=== PATIENT | female | born 1945 | race Caucasian/White ===

== ENCOUNTER 2016-09-03 18:56 | Emergency (ER) | payer MEDICARE, MEDICAID ==
[~2016-09-03] VITALS: Ht 167.6 cm; Wt 90.9 kg
[~2016-09-03 18:56] MED LIST: CARV25T PO; CEPH500C PO; FLUT1DIS7; INSU100V4; LEVO50TA83; LIDO30AD TP; LIP40; MIRT45TA; PRAZ5CAP; QUET400T; QUET50TA; TRAZ-151; VENL150C4; VENL75CA3; ZIPR40CA; [UNRECOGNIZED DRUG - CODE]; [UNRECOGNIZED DRUG - CODE]
[2016-09-03 19:09] VITALS: BP 180/114; PULSE 57; RESP 18; O2SAT 100
--- NOTE | 2016-09-03 19:10 | ED.REPORT ---
HPI-General Illness Date of Service Sep 03, 2016 ED Provider: William Newton MD Patient is a 70 year old female with a history of schizophrenia, bipolar disorder, prior CVA, hypertension, and diabetes mellitus who presents to the ED via EMS with decreased level of consciousness after she was found to have a blood sugar of 22 prior to arrival. AMP of D50 increased the blood sugar to the 200s. However, the patient's blood sugar is decreasing on arrival to the ED, down to 131. The patient lives with her sister and she is given her insulin by her sister. The patient knows that she was given her insulin today but she does not know if she was given too much. Patient states to ask her sister for more information, but she is not present in the ED on initial evaluation. The patient states that she feels improved on arrival to the ED and that she is hungry. She denies chest pain, shortness of breath, abdominal pain, light headedness, dizziness, vomiting, or diaphoresis. The patient's sister was later present in the ED and was able to provide additional history. Her sister is her caregiver and power of regulatory attorney. She reports that the patient received the normal amount of insulin and that she usually eats more food than she should. Her sister measured 275 blood glucose and was given 30 units of Lispro. This is what she was instructed to given her when she is hyperglycemic and has been their regime for the past year. She denies giving her sister too much insulin. Her sister later noted that the patient went up to the bathroom and that she appear wobbly. She found her sister laying still after dinner, with a blood sugar of 174. The patient later appeared more sedated and she called 911. Her sister also reports that the patient has had diarrhea for the past week. The diarrhea has been watery and very frequent (4-5 daily). The patient has not had hematochezia, abdominal pain , or vomiting. Patient is otherwise at her baseline. Her sister was recently admitted to the hospital for a C. diff. colitis infection. Nursing Notes Stated Complaint: HYPOGLYCEMIA Chief Complaint: General Complaint Nursing Notes Reviewed: Yes Allergies: Coded Allergies: Penicillins (Verified Allergy, Severe, FACIAL SWELLING, 09/03/16) aspirin (Verified Allergy, Severe, UNABLE TO BREATHE, 09/03/16) codeine (Verified Allergy, Severe, 09/03/16) fentanyl (Verified Allergy, Severe, 09/03/16) iodine (Verified Allergy, Severe, UNABLE TO BREATHE, 09/03/16) meperidine (Verified Allergy, Severe, 09/03/16) Uncoded Allergies: Demerol ASA iodine, and IVP dye. (Allergy, Unknown, 06/18/04) MEPERIDINE; FENTANYL (Ingr Allergy) (Allergy, Unknown, Y, 06/18/04) Opiate Agonists (Narcotics) (Allergy, Unknown, 06/18/04) SALICYLATES; NSAIDS; PYRAZOLES (Ingr Allergy) (Allergy, Unknown, Y, ) Scheduled Carvedilol-Expunged Drug, Do Not Renew! (Carvedilol-Expunged Drug, Do Not Renew! ) 25 Mg Tablet 12.5 MG PO BIDWM Cephalexin-Expunged Drug, Do Not Renew! (Cephalexin-Expunged Drug, Do Not Renew! ) 500 Mg Capsule 500 MG PO TID Lidocaine-Expunged Drug, Do Not Renew! (Lidoderm 5% Trans-Expunged Drug, Do Not Renew) 1 Patch Adh..patch 3 PATCH TP DAILY Miscellaneous Medications Albuterol-Expunged Drug, Do Not Renew! (Albuterol-Expunged Drug, Do Not Renew!) 2 Puffs Inh Atorvastatin-Expunged Drug, Do Not Renew! (Atorvastatin-Expunged Drug, Do Not Renew!) 40 Mg Tablet Flutic/Salmet-Expunged Drug, Do Not Renew! (Advair 250/50-Expunged Drug, Do Not Renew!) 1 Disk W/Dev Disk.w.dev Insulin Detemir-Expunged Drug, Do Not Renew! (Levemir-Expunged Drug, Do Not Renew!) 100 U/Ml Vial Levothyroxine-Expunged Drug, Do Not Renew! (Synthroid-Expunged Drug, Do Not Renew!) 50 Mcg Tablet Mirtazapine-Expunged Drug, Do Not Renew! (Remeron-Expunged Drug, Do Not Renew!) 45 Mg Tablet OXcarbazepine-Expunged Drug, Do Not Renew! (Trileptal-Expunged Drug, Do Not Renew!) 300 Mg Tablet Prazosin Hcl-Expunged Drug, Do Not Renew! (Minipress-Expunged Drug, Do Not Renew !) 5 Mg Capsule Quetiapine-Expunged Drug, Do Not Renew! (Seroquel-Expunged Drug, Do Not Renew!) 400 Mg Tablet Quetiapine-Expunged Drug, Do Not Renew! (Seroquel-Expunged Drug, Do Not Renew!) 50 Mg Tablet Trazodone-Expunged Drug, Do Not Renew! (Trazodone-Expunged Drug, Do Not Renew!) 50 Mg Tablet Venlafaxine-Expunged Drug, Do Not Renew! (Effexor XR-Expunged Drug, Do Not Renew !) 150 Mg Cap.er.24h Venlafaxine-Expunged Drug, Do Not Renew! (Effexor XR-Expunged Drug, Do Not Renew !) 75 Mg Cap.sr.24h Ziprasidone-Expunged Drug, Do Not Renew! (Geodon-Expunged Drug, Do Not Renew!) 40 Mg Capsule General Time Seen by MD: 19:09 Chief Complaint Other (low blood sugar) Hx Obtained From: Patient Arrived By: Ambulance Sudden in Onset?: No Onset Occurred: 1 - 4 hours ago Severity: Current: No pain currently Severity: Maximum: No pain Recent Healthcare: No recent doctor visit, No recent hospitalization Similar Sx Previous: No Past Medical History Past Medical History Bipolar disorder schizophrenia Left sided weakness secondary to prior CVA Reports: Diabetes mellitus, Hypertension Smoking History Never Smoker Social History Alcohol Use: Denies alcohol use Drug Use: Denies drug use Ambulatory Status Cane Review of Systems Full Review of Systems Respiratory: Denies: Non-productive cough, Shortness of breath Cardiovascular: Denies: Chest pain, Palpitations GI: Reports: Diarrhea, Denies: Abdominal pain, Hematochezia, Nausea, Vomiting Skin: Denies Diaphoresis Neurologic: Reports: Change LOC, Denies: Dizziness, Lightheaded Complete sys rev & neg: except as marked. Physical Exam Vital Signs Vital Signs Date Time Temp Pulse Resp B/P Pulse Ox O2 Delivery O2 Flow Rate FiO2 09/03/16 21:44 64 18 177/98 99 Room Air 09/03/16 19:58 53 20 157/100 98 Room Air 09/03/16 19:09 36.1 57 18 180/114 100 Room Air Initial VS: Reviewed Skin: Warm, Dry, No cyanosis Neurologic: Alert, Oriented, Nonfocal Psychiatric: Mood/affect normal, Behavior normal, Normal thought content General/Constitutional: Awake, Alert, No acute distress Appearance / Presentation: Positive: Obese Head / Eyes: Atraumatic, Normocephalic, PERRL ENT: Airway patent Neck: Supple, Full range of motion Respiratory / Chest: Breath sounds NL, Breath sounds = bilat, No respiratory distress, No rales, No rhonchi, No wheezing Cardiovascular: Heart rate NL, Regular rhythm, No murmurs Abdomen: Soft, Non-tender, No guarding, No rebound Upper Extremities Upper Extremity / MS: No swelling, No edema Lower Extremity / Pelvis / MS: No swelling, No edema left leg brace Interpretation & Diagnostics Lab Results Interpretation Result Diagram: 09/03/16194409/03/161944 Test 09/03/16 19:35 09/03/16 19:45 Urine Color Yellow (YELLOW) Urine Appearance Clear (CLEAR,HAZY) Urine pH 7.5 (5.0-8.0) Urine Specific [place] 1.020 (1.003-1.035) Urine Protein Tracemg/dL (NEG,TRACE) Urine Glucose (UA) 100mg/dL (NEGATIVE) Urine Ketones Negativemg/dL (NEGATIVE) Urine Occult Blood Negative (NEGATIVE) Urine Nitrite Negative (NEGATIVE) Urine Bilirubin Negative (NEGATIVE) Urine Urobilinogen Normalmg/dL (NORMAL) Urine Leukocyte Esterase Negative (NEGATIVE) Urine RBC 0-2/hpf (0-2) Urine WBC 0-5/hpf (0-5) Urine Epithelial Cells Few/hpf (NONE-MOD) Urine Crystals None seen (NONE SEEN) Urine Bacteria Few/hpf (NONE-FEW) Urine Hyaline Casts None/lpf (NONE) Urine Granular Casts None seen (NONE SEEN) Urine Waxy Casts None seen (NONE SEEN) Urine Red Blood Cell Casts None seen (NONE SEEN) Urine White Blood Cell Casts None seen (NONE SEEN) Urine Mucus None seen (None Seen) Urine Trichomonas None seen (NONE SEEN) Urine Yeast None (NONE SEEN) Urinalysis Comment None Urine Culture Reflexed Not indicated Hold Urine Received (Received) White Blood Count 12.5th/mm3 (3.8-10.1) Red Blood Count 5.27mil/mm3 (3.90-5.20) Hemoglobin 14.9g/dL (12.0-15.6) Hematocrit 42.3% (35.0-46.0) Mean Corpuscular Volume 80.3fL (81-100) Mean Corpuscular Hemoglobin 28.3pg (27.0-35.0) Mean Corpuscular Hemoglobin Concent 35.2% (32.0-37.0) Red Cell Distribution Width 13.8% (12.3-15.4) Platelet Count 178bil/L (150-400) Neutrophils (%) (Auto) 75.5% (40-74) Lymphocytes (%) (Auto) 13.5% (14-46) Monocytes (%) (Auto) 4.9% (4-12) Eosinophils (%) (Auto) 5.3% (0-5) Basophils (%) (Auto) 0.2% (0-3) Sodium Level 130mEq/L (134-144) Potassium Level 4.2mEq/L (3.5-5.2) Chloride Level 91mEq/L (97-108) Carbon Dioxide Level 22mmol/L (18-29) Blood Urea Nitrogen 8mg/dL (8-27) Creatinine 0.47mg/dL (0.57-1.00) Estimat Glomerular Filtration Rate 189mL/min (>59) Glucose Level 69mg/dL (60-99) Calcium Level 9.4mg/dL (8.5-10.1) Magnesium Level 1.9mg/dL (1.6-2.6) Total Bilirubin 0.3mg/dL (0.0-1.2) Aspartate Amino Transf (AST/SGOT) 33U/L (0-50) Alanine Aminotransferase (ALT/SGPT) 27U/L (0-32) Alkaline Phosphatase 80U/L (25-165) Total Protein 7.7g/dL (6.4-8.4) Albumin 4.0g/dL (3.4-5.0) Lipase 24U/L (13-60) ECG Interpretation ECG Interpretation: Normal Sinus Rhythm, Rate 56 Time: 20:00 Interpreted by: ED physician Normal ECG Interpretation: No acute ischemic changes X-Ray Chest Interpretation Chest Xray Interpretation: IMPRESSION: Normal examination. Dictated by: Sascha Trejo M.D. on 09/03/2016 at 20:15 Approved by: Sascha Trejo M.D. on 09/03/2016 at 20:15 Interpretation / Wet Read by: Interpret - Radiologist Re-Eval/Medical Decision Med Decision/Clinical Course 70-year-old female history diabetes, schizophrenia presenting with hypoglycemia blood sugar of 22. Patient was obtunded today at home in the care of her sister and called paramedics and they showed up and her blood sugar showed 22. There are home monitor at the same time showed 170s. They had inadvertently corrected prior to dinner and blood sugar of the 200s with 30 units of short-acting insulin. After comparing to paramedics Accu-Chek their home Accu-Chek was inaccurate. Therefore she had been given too much insulin. She was given 1 amp of D50 en route. Her blood sugars trended down. She was given another amp of D50 here. She was given food and her blood sugars then remained stable. She was observed for 4-1/2 hours. With stable blood sugars. Discussed with family and they would like to take her home. They will check her blood sugar in 2 hours. If her blood sugars drop again and they are unable to corrected with oral they will call the paramedics. They are advised to follow-up with her primary doctor tomorrow and get a new glucometer. Source of Hx: Old records Time of Eval: 20:00 Patient Status: Condition improved Re-Evaluation/Progress Note: Rechecked the patient, who is now joined by her sister. She is able to provide more history. Time of Eval: 23:04 Patient Status: Condition improved Re-Evaluation/Progress Note: Patient remains stable in the ED after eating food. Sister states that they believe their glucose moniter is no longer properly calibrated and this is what caused the error tonight. Patient's sister understands and agrees with the plan to be discharged home. Discharge instructions and follow-up discussed. All questions were addressed. Return to the ED warnings given. Counseled Regarding: Diagnosis, Lab results, Need for follow-up, When/why to return to ED Discharge & Departure Primary Impression: Hypoglycemia Additional Impression: Diabetes mellitus Diabetes mellitus type: type 2 Diabetes mellitus complication status: with unspecified complications Qualified Code: E11.8 - Type 2 diabetes mellitus with unspecified complications Disposition: Home Discharge Condition All VS Reviewed: Yes Condition: Stable Patient Instructions: Diabetic Hypoglycemia (ED) Additional Instructions: Her blood sugars has been consistently in the 100s during her emergency department visit fabricio. Her laboratory evaluation was otherwise reassuring. Recheck her blood sugar in 2 hours. If her blood sugar is below 60, give her something to eat and then recheck her blood sugar again. Follow-up with her doctor in the next 1-2 days. You should look into obtaining a new blood glucose monitor. Return to the emergency department if she develops decreased level of consciousness, confusion, fever, vomiting, or any other concerning symptoms. Referrals: Shimon Neville MD (PCP) Scribe Attestation Portions of this note were transcribed by Luna Olivia. I, Dr. Newton personally performed the history, physical exam and medical decision-making; I reviewed and confirmed the accuracy of the information in the transcribed note. Signed by: Brain Woody, 09/03/2016 [id number] copies to: Shimon Neville MD, Ben M MD Sep 03, 2016 19:09 Luna Olivia Sep 03, 2016 19:18
[2016-09-03 19:52] LABS: BASOPHILS % (AUTO) 0.2 % (0-3); EOSINOPHILS % (AUTO) 5.3 % (0-5); MONOCYTES % (AUTO) 4.9 % (4-12); Mean Corpuscular Hemoglobin 28.3 pg (27.0-35.0); Mean Corpuscular Volume 80.3 fL (81-100); NEUTROPHILS % (AUTO) 75.5 % (40-74); Platelet Count 178 bil/L (150-400)
[2016-09-03 19:58] VITALS: BP 157/100; PULSE 53; RESP 20; O2SAT 98
[2016-09-03 20:09] LABS: APPEARANCE,URINE CLEAR (CLEAR,HAZY); COLOR,URINE YELLOW (YELLOW); OCCULT BLOOD,URINE NEGATIVE (NEGATIVE); PH,URINE 7.5 (5.0-8.0); UROBILINOGEN,URINE NORMAL (NORMAL)
[2016-09-03 20:16] LABS: Magnesium 1.9 mg/dL (1.6-2.6)
--- NOTE | 2016-09-03 20:17 | DRSVH ---
PROCEDURE: X-RAY CHEST ONE VIEW, PORTABLE ([id number]) INDICATIONS: dyspnea TECHNIQUE: One view of the chest was acquired. COMPARISON: [facility], , CHEST 1VW (PORTABLE), 03/26/2008, 20:54. FINDINGS: Surgical changes and devices: None. Lungs and pleura: No pleural effusions or pneumothorax. Lungs are clear. Mediastinum: Mediastinal contours appear normal. Heart size is normal. Bones and chest wall: No suspicious bony lesions. Overlying soft tissues appear unremarkable. IMPRESSION: Normal examination. Dictated by: Sascha Trejo M.D. on 09/03/2016 at 20:15 Approved by: Sascha Trejo M.D. on 09/03/2016 at 20:15
[2016-09-03 21:44] VITALS: BP 177/98; PULSE 64; RESP 18; O2SAT 99
[2016-09-03 23:25] VITALS: BP 179/89; PULSE 70; RESP 18; O2SAT 96
== END 2016-09-03 23:26 | disposition home or self-care (01) ==
LOC: SED 18:56 → EDBD 18:56 → EDUNIT# 18:56 → SED 23:26
DX: E11.649 Type 2 diabetes mellitus with hypoglycemia without coma (principal); R19.7 Diarrhea, unspecified; I10 Essential (primary) hypertension; I69.998 Other sequelae following unspecified cerebrovascular disease; R53.1 Weakness; F31.9 Bipolar disorder, unspecified; F20.9 Schizophrenia, unspecified; Z88.0 Allergy status to penicillin; Z88.5 Allergy status to narcotic agent; Z88.8 Allergy status to other drugs, medicaments and biological substances; Z79.4 Long term (current) use of insulin

== ENCOUNTER 2016-09-20 13:45 | Emergency (ER) | payer MEDICARE, MEDICAID ==
[~2016-09-20] VITALS: Ht 154.9 cm; Wt 126.4 kg
[2016-09-20 14:06] VITALS: BP 174/94; PULSE 76; RESP 20; O2SAT 95
--- NOTE | 2016-09-20 15:01 | ED.REPORT ---
HPI-Trauma Minor / Fall Date of Service Sep 20, 2016 ED Provider: Saroj Ortez MD Pt is a 70 y/o female w/ a hx of strokes x4 with residual left sided deficits, early onset dementia, HTN, IDDM, presenting to the ED via EMS due to GLF which occurred about 1.5 hours ago. She does not remember falling or the mechanism of the fall. Her sister found her lying on cement ground on her right side with an obvious head injury. She c/o associated FLETCHER , dizziness, blurred vision, slurred speech, worsening confusion, nausea, numbness and weakness of the left side ( chronic, residual). She denies vomiting, neck pain, CP, SOB, fever, chills. Additionally, caregiver reports a refractory rash on the abdomen for some months not responsive to nystatin. Nursing Notes Stated Complaint: GROUND LEVEL FALL Chief Complaint: Multiple Trauma/Fall Nursing Notes Reviewed: Yes Allergies: Coded Allergies: Penicillins (Verified Allergy, Severe, FACIAL SWELLING, 09/03/16) aspirin (Verified Allergy, Severe, UNABLE TO BREATHE, 09/03/16) codeine (Verified Allergy, Severe, 09/03/16) fentanyl (Verified Allergy, Severe, 09/03/16) iodine (Verified Allergy, Severe, UNABLE TO BREATHE, 09/03/16) meperidine (Verified Allergy, Severe, 09/03/16) Uncoded Allergies: Demerol ASA iodine, and IVP dye. (Allergy, Unknown, 06/18/04) MEPERIDINE; FENTANYL (Ingr Allergy) (Allergy, Unknown, Y, 06/18/04) Opiate Agonists (Narcotics) (Allergy, Unknown, 06/18/04) SALICYLATES; NSAIDS; PYRAZOLES (Ingr Allergy) (Allergy, Unknown, Y, ) Scheduled Carvedilol-Expunged Drug, Do Not Renew! (Carvedilol-Expunged Drug, Do Not Renew! ) 25 Mg Tablet 12.5 MG PO BIDWM Cephalexin-Expunged Drug, Do Not Renew! (Cephalexin-Expunged Drug, Do Not Renew! ) 500 Mg Capsule 500 MG PO TID Lidocaine-Expunged Drug, Do Not Renew! (Lidoderm 5% Trans-Expunged Drug, Do Not Renew) 1 Patch Adh..patch 3 PATCH TP DAILY Miscellaneous Medications Albuterol-Expunged Drug, Do Not Renew! (Albuterol-Expunged Drug, Do Not Renew!) 2 Puffs Inh Atorvastatin-Expunged Drug, Do Not Renew! (Atorvastatin-Expunged Drug, Do Not Renew!) 40 Mg Tablet Flutic/Salmet-Expunged Drug, Do Not Renew! (Advair 250/50-Expunged Drug, Do Not Renew!) 1 Disk W/Dev Disk.w.dev Insulin Detemir-Expunged Drug, Do Not Renew! (Levemir-Expunged Drug, Do Not Renew!) 100 U/Ml Vial Levothyroxine-Expunged Drug, Do Not Renew! (Synthroid-Expunged Drug, Do Not Renew!) 50 Mcg Tablet Mirtazapine-Expunged Drug, Do Not Renew! (Remeron-Expunged Drug, Do Not Renew!) 45 Mg Tablet OXcarbazepine-Expunged Drug, Do Not Renew! (Trileptal-Expunged Drug, Do Not Renew!) 300 Mg Tablet Prazosin Hcl-Expunged Drug, Do Not Renew! (Minipress-Expunged Drug, Do Not Renew !) 5 Mg Capsule Quetiapine-Expunged Drug, Do Not Renew! (Seroquel-Expunged Drug, Do Not Renew!) 400 Mg Tablet Quetiapine-Expunged Drug, Do Not Renew! (Seroquel-Expunged Drug, Do Not Renew!) 50 Mg Tablet Trazodone-Expunged Drug, Do Not Renew! (Trazodone-Expunged Drug, Do Not Renew!) 50 Mg Tablet Venlafaxine-Expunged Drug, Do Not Renew! (Effexor XR-Expunged Drug, Do Not Renew !) 150 Mg Cap.er.24h Venlafaxine-Expunged Drug, Do Not Renew! (Effexor XR-Expunged Drug, Do Not Renew !) 75 Mg Cap.sr.24h Ziprasidone-Expunged Drug, Do Not Renew! (Geodon-Expunged Drug, Do Not Renew!) 40 Mg Capsule General Time Seen by MD: 14:59 Chief Complaint Fall, Head injury Hx Obtained From: Patient, EMS Arrived By: Ambulance Onset Occurred: 1 - 4 hours ago Caused by: Accidental, Fall on ground Location: Head Quality: Aching Severity: Current: Mild Severity: Maximum: Moderate Past Medical History Past Medical History Bipolar disorder schizophrenia Left sided weakness secondary to prior CVA Strokes x4 Early onset dementia Suicidal ideation Hypertension Insulin dependent diabetes COPD Asthma Hx pneumonia Anxiety Depression Recurrent suicidal ideation Hx self harm Past Surgical History R hand Back Tubal ligation Smoking History Never Smoker Social History Alcohol Use: Denies alcohol use Drug Use: Denies drug use Ambulatory Status Cane Review of Systems Constitutional: Denies: Chills, Fever Respiratory: Denies: Shortness of breath Musculoskeletal: Denies: Neck pain Neurologic: Reports: Confusion, Dizziness, Focal weakness, Headache, Numbness, Slurred speech, Vision change Complete sys rev & neg: except as marked. Cardiovascular: Denies: Chest pain GI: Reports: Nausea, Denies: Vomiting Physical Exam Initial Vital Signs Vital Signs (First) Date Time Temp Pulse Resp B/P Pulse Ox O2 Delivery O2 Flow Rate FiO2 09/20/16 14:06 37.1 76 20 95 Room Air 09/20/16 14:06 174/94 Initial VS: Reviewed, Vital signs abnormal Respiratory: Breath sounds normal, Clear to auscultation, No respiratory distress Cardiovascular: Regular rate & rhythm, Heart sounds normal, Intact distal pulses Abdomen / GI: Soft, Non-tender, No guarding, No rebound, No distention Skin: Warm, Dry, No cyanosis Psychiatric: Mood/affect normal, Behavior normal, Normal thought content General/Constitutional: Awake, Alert, No acute distress, Cooperative, Not toxic appearing Neck: Atraumatic, Supple, No meningismus, Full range of motion Mild posterior c-spine tenderness Head / Eyes: Normocephalic, PERRL, EOMI Tender subgalia hematoma right occiput Lower Extremity / Pelvis / MS: Full range of motion, No deformity, Vascular intact, Pelvis stable, Pelvis non-tender Brace on the left left FROM of hips Color / Condition: Positive: Rash present Rash / Lesion Notes: Fungal appearing rash in the fold under the abdominal pannus. No significant skin breakdown. Neurologic: Oriented X3, Speech NL No sensation of the left side - residual Interpretation & Diagnostics Lab Results Interpretation Test 09/20/16 14:36 09/20/16 17:07 Hold Purple Top Tube Received (Received) Hold Blue Top Tube Received (Received) Hold [place] Top Tube Received (Received) Hold [place] Top Tube Received (Received) Urine Color Yellow (YELLOW) Urine Appearance Clear (CLEAR,HAZY) Urine pH 6.0 (5.0-8.0) Urine Specific [place] 1.025 (1.003-1.035) Urine Protein Negativemg/dL (NEG,TRACE) Urine Glucose (UA) Negativemg/dL (NEGATIVE) Urine Ketones Negativemg/dL (NEGATIVE) Urine Occult Blood Negative (NEGATIVE) Urine Nitrite Negative (NEGATIVE) Urine Bilirubin Negative (NEGATIVE) Urine Urobilinogen Normalmg/dL (NORMAL) Urine Leukocyte Esterase Negative (NEGATIVE) Urine RBC 0-2/hpf (0-2) Urine WBC 0-5/hpf (0-5) Urine Epithelial Cells None/hpf (NONE-MOD) Urine Crystals None seen (NONE SEEN) Urine Bacteria None/hpf (NONE-FEW) Urine Hyaline Casts None/lpf (NONE) Urine Granular Casts None seen (NONE SEEN) Urine Waxy Casts None seen (NONE SEEN) Urine Red Blood Cell Casts None seen (NONE SEEN) Urine White Blood Cell Casts None seen (NONE SEEN) Urine Mucus None seen (None Seen) Urine Trichomonas None seen (NONE SEEN) Urine Yeast None (NONE SEEN) Urinalysis Comment None Urine Culture Reflexed Not indicated CT Head Interpretation IMPRESSION: No acute intracranial disease process. Dictated by: Ericka Grover MD, PhD on 09/20/2016 at 16:24 Approved by: Ericka Grover MD, PhD on 09/20/2016 at 16:26 Study: Head CT no contrast Interpretation / Wet Read by: Interpret - Radiologist CT C-Spine Interpretation IMPRESSION: No fracture. No acute osseous lesion. If symptoms and/or clinical suspicion for pathology persists, evaluation with MRI may be helpful for further assessment. Dictated by: Ericka Grover MD, PhD on 09/20/2016 at 16:26 Approved by: Ericka Grover MD, PhD on 09/20/2016 at 16:31 Study type: CT no contrast Interpretation / Wet Read by: Interpret - Radiologist Re-Eval/Medical Decision Source of Hx: Old records, EMS, Family Re-Evaluation/Progress : Time of Eval: 17:41 Patient Status: Condition improved Re-Evaluation/Progress Note: Pt rechecked. Discussed negative imaging and lab results. Informed pt of plan for treatment. Pt understands and agrees with plan for treatment. F/U instructions and RTER warnings given. All questions addressed. Counseled Regarding: Diagnosis, Lab results, Need for follow-up, When/why to return to ED Discharge & Departure Impression: Primary Impression: Fall from ground level Additional Impressions: Minor head injury Encounter type: initial encounter Qualified Code: S00.90XA - Unspecified superficial injury of unspecified part of head, initial encounter Fungal infection of skin Disposition: Home Discharge Condition All VS Reviewed: Yes Condition: Stable Patient Instructions: Minor Head Injury (ED) Additional Instructions: The CT scan of your head and neck today were normal. Your urinalysis today was also normal. No dangerous injuries have been identified. I recommend you follow-up with your primary care doctor later this week or early next week if your symptoms persist to any degree. Regarding the fungal infection on the skin, I recommend daily washing with clean tap water and a mild soap. Make sure the skin is completely dry and then apply Lamisil cream sparingly on all the affected tissue. Put a piece of clean dry cotton cloth in the fold to keep the area dry. The cotton cloth might need to be changed a few times a day. The antifungal cream only needs to be applied once a day. If you do not see any improvement in about 2 weeks, follow-up with your doctor for this. Return to the emergency department if you continue to fall, develop a fever, or for other new or worsening symptoms. Referrals: Shimon Neville MD (PCP) Brain Attestation Portions of this note were transcribed by Mac Elise. I, Dr. Ortez personally performed the history, physical exam and medical decision-making; I reviewed and confirmed the accuracy of the information in the transcribed note. Signed by Brain Alvarez, 09/20/16 - 1630 copies to: Shimon Neville MD, Kirk H MD Sep 20, 2016 15:01 MAC ELISE Sep 20, 2016 15:33
--- NOTE | 2016-09-20 16:28 | DRSVH ---
PROCEDURE: CT BRAIN WITHOUT CONTRAST ([id number]) INDICATIONS: trauma TECHNIQUE: Noncontrast 4.5 mm thick angled axial sections acquired from the foramen magnum to the vertex, with c oronal reformats. COMPARISON: [facility], [place], BRAIN W/O CONTRAST, 07/30/2014, 15:34. FINDINGS: Image quality: Excellent. CSF spaces: Basal cisterns are patent. No extra-axial fluid collections. The ventricles are symmet harrpeet in size and shape. Brain: No intracranial bleeds or masses. There is cerebral volume loss for age, with resultant vent ricular and sulcal prominence. There are periventricular and deep white matter chronic small vessel ischemic changes. There is intracranial internal carotid artery atherosclerosis. Skull and face: Calvarium and visualized facial bones appear intact, without suspicious lesions. Sinuses: Visualized sinuses and mastoids are clear. IMPRESSION: No acute intracranial disease process. Dictated by: Ericka Grover MD, PhD on 09/20/2016 at 16:24 Approved by: Ericka Grover MD, PhD on 09/20/2016 at 16:26
--- NOTE | 2016-09-20 16:33 | DRSVH ---
PROCEDURE: CT CERVICAL SPINE WITHOUT CONTRAST ([id number]) INDICATIONS: trauma TECHNIQUE: Noncontrast 3 mm thick sections acquired from the skull base to the T4 level. Sagittal and coronal r eformats were then constructed. For radiation dose reduction, the following was used: automated exp osure control, adjustment of mA and/or kV according to patient size. COMPARISON: None. FINDINGS: Image quality: Excellent. Bones: No fractures or dislocations. Visualized superior ribs are intact. Multilevel degenerative d isc disease and facet arthropathy are noted. Soft tissues: Prevertebral soft tissues are normal in thickness. No paravertebral hematomas. No ap ical pneumothoraces. IMPRESSION: No fracture. No acute osseous lesion. If symptoms and/or clinical suspicion for patholog y persists, evaluation with MRI may be helpful for further assessment. Dictated by: Ericka Grover MD, PhD on 09/20/2016 at 16:26 Approved by: Ericka Grover MD, PhD on 09/20/2016 at 16:31
[2016-09-20 17:32] LABS: APPEARANCE,URINE CLEAR (CLEAR,HAZY); COLOR,URINE YELLOW (YELLOW)
[2016-09-20 17:33] LABS: OCCULT BLOOD,URINE NEGATIVE (NEGATIVE); UROBILINOGEN,URINE NORMAL (NORMAL)
[2016-09-20 18:10] VITALS: BP 157/101; PULSE 81; RESP 18; O2SAT 97
== END 2016-09-20 18:12 | disposition home or self-care (01) ==
LOC: SED 13:45 → EDBD 13:45 → EDUNIT# 13:45 → SED 18:12
DX: S09.90XA Unspecified injury of head, initial encounter (principal); B36.9 Superficial mycosis, unspecified; W18.30XA Fall on same level, unspecified, initial encounter; Y93.01 Activity, walking, marching and hiking; Y99.8 Other external cause status; Y92.014 Private driveway to single-family (private) house as the place of occurrence of the external cause; I10 Essential (primary) hypertension; E11.9 Type 2 diabetes mellitus without complications; J45.909 Unspecified asthma, uncomplicated; J44.9 Chronic obstructive pulmonary disease, unspecified; Z86.73 Personal history of transient ischemic attack (TIA), and cerebral infarction without residual deficits; Z79.4 Long term (current) use of insulin; Z79.51 Long term (current) use of inhaled steroids; Z88.0 Allergy status to penicillin; Z88.6 Allergy status to analgesic agent; Z88.5 Allergy status to narcotic agent

== ENCOUNTER 2016-12-24 19:02 | Inpatient (IN) | payer MEDICARE, MEDICAID ==
[~2016-12-24] VITALS: Ht 154.9 cm; Wt 99.5 kg
--- NOTE | 2016-12-24 19:07 | ED.REPORT ---
HPI-Altered Mental Status Date of Service December 24, 2016 ED Provider: Arya Howard MD The pt is a 71 y/o female w/ a hx of hypoglycemia, dementia, schizophrenia and strokes presenting to the ED via EMS due to unresponsiveness. Per EMS, the pt had just finished a dinner of 4 corn dogs and a Mountain Dew this evening and became unresponsive shortly after. Her family checked her blood sugar and found it to be 19, though EMS measured a blood sugar of 197 when they arrived thirty minutes later. The pt became more responsive after paramedics arrived, but remains below baseline per family. The pt's sister reports that the pt took her regular medications after dinner including Trazodone and Seroquel, and had been acting normally earlier in the day. The pt is not on any pain medications. The pt had labs done yesterday which indicated abnormal sodium levels. Nursing Notes Stated Complaint: UNRESPONSIVE Nursing Notes Reviewed: Yes Allergies: Coded Allergies: Penicillins (Verified Allergy, Severe, FACIAL SWELLING, 09/03/16) aspirin (Verified Allergy, Severe, UNABLE TO BREATHE, 09/03/16) codeine (Verified Allergy, Severe, 09/03/16) fentanyl (Verified Allergy, Severe, 09/03/16) iodine (Verified Allergy, Severe, UNABLE TO BREATHE, 09/03/16) meperidine (Verified Allergy, Severe, 09/03/16) Uncoded Allergies: Demerol ASA iodine, and IVP dye. (Allergy, Unknown, 06/18/04) MEPERIDINE; FENTANYL (Ingr Allergy) (Allergy, Unknown, Y, 06/18/04) Opiate Agonists (Narcotics) (Allergy, Unknown, 06/18/04) SALICYLATES; NSAIDS; PYRAZOLES (Ingr Allergy) (Allergy, Unknown, Y, ) Scheduled Atorvastatin (Lipitor) 40 Mg Tablet 40 MG PO HS Carvedilol (Carvedilol) 25 Mg Tablet 25 MG PO BID Fluticasone/Salmeterol (Advair 500-50 Diskus) 1 Each Disk.w.dev 1 PUFF IH BID Insulin Aspart (NovoLOG U100 Insulin Vial) 100 U/Ml U 10 UNITS SUBQ TIDWM Insulin Glargine (Lantus U100 Insulin Vial) 100 Unit/Ml Vial 50 UNIT SUBQ HS Levothyroxine (Levothyroxine) 137 Mcg Tablet 137 MCG PO QAM Lisinopril (Lisinopril) 10 Mg Tablet 10 MG PO DAILY Melatonin (Melatonin) 10 Mg Tablet 10 MG PO HS Mirtazapine (Mirtazapine) 45 Mg Tablet 45 MG PO HS Nystatin (Nystop) 60 Gm Powder 1 APPLIC TP BID Omeprazole (Omeprazole) 20 Mg Capsule.dr 20 MG PO QAM Oxcarbazepine (Oxcarbazepine) 300 Mg Tablet 150 MG PO QAM OXCARBAMAZEPINE 150 MG IN AM, OXCARBAMAZEPINE 600 MG AT HS Oxcarbazepine (Oxcarbazepine) 300 Mg Tablet 600 MG PO HS OXCARBAMAZEPINE 150 MG IN AM, OXCARBAMAZEPINE 600 MG AT HS Prazosin (Prazosin) 5 Mg Capsule 5 MG PO HS Quetiapine Fumarate (Quetiapine Fumarate) 400 Mg Tablet 200 MG PO HS Trazodone (Trazodone) 100 Mg Tablet 150-200 MG PO HS Triamcinolone Acet (Triamcinolone Acetonide Cream) 1 Applic/0.25 Gm Cr 1 APPLIC EXT BID Venlafaxine ER (Venlafaxine ER) 150 Mg Cap.er.24h 150 MG PO QAM VENLAFAXINE 150 MG IN AM, VENLAFAXINE 75 MG IN PM Venlafaxine ER (Venlafaxine ER) 75 Mg Cap.er.24h 75 MG PO QPM VENLAFAXINE 150 MG IN AM, VENLAFAXINE 75 MG IN PM Ziprasidone (Ziprasidone) 40 Mg Capsule 40 MG PO QAM ZIPRASIDONE 40 MG IN AM, AND ZIPRASIDONE 80 MG IN PM Ziprasidone (Ziprasidone) 80 Mg Capsule 80 MG PO QPM ZIPRASIDONE 40 MG IN AM, AND ZIPRASIDONE 80 MG IN PM Scheduled PRN Albuterol HFA (Proair HFA) 8.5 Gm Hfa.aer.ad 2 PUFFS INHALATION Q4H PRN PRN For Shortness of Breath General Time Seen by MD: 19:06 Chief Complaint Decreased responsiveness Hx Obtained From: Other family... (Sister), EMS Arrived By: Ambulance Sudden in Onset?: Yes Onset Occurred: 1 - 4 hours ago Recent Healthcare: No recent hospitalization, Recent doctor visit Past Medical History Past Medical History Notes: PCP: Dr. Recinos Past Medical History Bipolar disorder schizophrenia Left sided weakness secondary to prior CVA Strokes x4 Early onset dementia Suicidal ideation Hypertension Insulin dependent diabetes COPD Asthma Hx pneumonia Anxiety Depression Recurrent suicidal ideation Hx self harm Past Surgical History R hand Back Tubal ligation Smoking History Never Smoker Social History Alcohol Use: Denies alcohol use Drug Use: Denies drug use Ambulatory Status Walker Review of Systems Unable to Obtain ROS Patient condition Physical Exam Initial Vital Signs Vital Signs (First) Date Time Temp Pulse Resp B/P Pulse Ox O2 Delivery O2 Flow Rate FiO2 12/24/16 19:13 35.6 65 20 120/87 100 Nasal Cannula 2 Initial VS: Reviewed General/Constitutional: Awake, Well nourished eyes open intermittently following commands Head / Eyes: Normocephalic, EOMI Pupils are 2mm and reactive. Neck: Atraumatic, Supple, Full range of motion Respiratory / Chest: Breath sounds NL, Breath sounds = bilat, No respiratory distress, No rales, No rhonchi, No wheezing Cardiovascular: Heart rate NL, Regular rhythm, Heart sounds NL, No gallop, No murmurs, No rubs Neurologic: No motor deficits No facial droop ENT: Atraumatic, Airway patent, Mucous membranes moist Abdomen: Soft, Non-tender, BS normoactive Skin: Color NL, No rash, Warm, Dry Lower Extremity / Pelvis / MS: Full range of motion, No deformity Splint on L ankle Interpretation & Diagnostics Lab Results Interpretation Result Diagram: 12/24/16191412/24/16 2346 Test 12/24/16 19:15 12/24/16 19:21 12/24/16 19:25 12/24/16 20:22 White Blood Count 5.8th/mm3 (3.8-10.1) Red Blood Count 4.42mil/mm3 (3.90-5.20) Hemoglobin 12.6g/dL (12.0-15.6) Hematocrit 35.9% (35.0-46.0) Mean Corpuscular Volume 81.2fL (81-100) Mean Corpuscular Hemoglobin 28.5pg (27.0-35.0) Mean Corpuscular Hemoglobin Concent 35.1% (32.0-37.0) Red Cell Distribution Width 13.2% (12.3-15.4) Platelet Count 216bil/L (150-400) Neutrophils (%) (Auto) 66.8% (40-74) Lymphocytes (%) (Auto) 23.1% (14-46) Monocytes (%) (Auto) 7.2% (4-12) Eosinophils (%) (Auto) 2.4% (0-5) Basophils (%) (Auto) 0.5% (0-3) Osmolality 264 (275-300) Uric Acid 3.3mg/dL (2.6-7.2) Total Bilirubin 0.3mg/dL (0.0-1.2) Aspartate Amino Transf (AST/SGOT) 25U/L (0-50) Alanine Aminotransferase (ALT/SGPT) 24U/L (0-32) Alkaline Phosphatase 73U/L (25-165) Total Protein 7.2g/dL (6.4-8.4) Albumin 4.1g/dL (3.4-5.0) Thyroid Stimulating Hormone (TSH) 14.060uIU/mL (0.450-4.500) Free Thyroxine 1.13ng/dL (0.82-1.77) Hold Blue Top Tube Received (Received) Hold Garcia Top Tube Received (Received) Urine Color Yellow (YELLOW) Urine Appearance Clear (CLEAR,HAZY) Urine pH 5.0 (5.0-8.0) Urine Specific [place] 1.025 (1.003-1.035) Urine Protein Negativemg/dL (NEG,TRACE) Urine Glucose (UA) Negativemg/dL (NEGATIVE) Urine Ketones Negativemg/dL (NEGATIVE) Urine Occult Blood Negative (NEGATIVE) Urine Nitrite Negative (NEGATIVE) Urine Bilirubin Negative (NEGATIVE) Urine Urobilinogen Normalmg/dL (NORMAL) Urine Leukocyte Esterase Negative (NEGATIVE) Urine RBC 0-2/hpf (0-2) Urine WBC 0-5/hpf (0-5) Urine Epithelial Cells Moderate/hpf (NONE-MOD) Urine Crystals None seen (NONE SEEN) Urine Bacteria None/hpf (NONE-FEW) Urine Hyaline Casts 5/20/lpf (NONE) Urine Granular Casts None seen (NONE SEEN) Urine Waxy Casts None seen (NONE SEEN) Urine Red Blood Cell Casts None seen (NONE SEEN) Urine White Blood Cell Casts None seen (NONE SEEN) Urine Mucus None seen (None Seen) Urine Trichomonas None seen (NONE SEEN) Urine Yeast None (NONE SEEN) Urinalysis Comment None Urine Culture Reflexed Not indicated Urine Osmolality 496mOs/kH2O (250-1200) Urine Random Sodium 42mEq/L Urine Opiates Screen Negative Urine Methadone Screen Negative Urine Barbiturates Screen Negative Urine Amphetamines Screen Positive Urine Benzodiazepines Screen Negative Urine Cocaine Metabolite Screen Negative Urine Cannabinoids Screen Negative ECG Interpretation ECG Interpretation: Rate 63 Sinus rhythm normal Prolonged [place] interval Time: 19:10 Interpreted by: ED physician X-Ray Chest Interpretation Chest Xray Interpretation: IMPRESSION: No acute process. Dictated by: Lupis Brown M.D. on 12/24/2016 at 19:32 Approved by: Lupis Brown M.D. on 12/24/2016 at 19:33 View: Portable, 1 view Interpretation / Wet Read by: Interpret - Radiologist CT Head Interpretation IMPRESSION: No acute intracranial abnormality. Dictated by: Lupis Brown M.D. on 12/24/2016 at 20:05 Approved by: Lupis Brown M.D. on 12/24/2016 at 20:05 Study: Head CT no contrast Interpretation / Wet Read by: Interpret - Radiologist Re-Eval/Medical Decision Med Decision/Clinical Course 71-year-old female who presents with a acute onset mental status change. Her neurologic exam is nonfocal, she is not febrile I do not find a source of infection we note that she does have a low serum sodium. This is thought to be the most likely etiology for her mental status change and given mental status changes and acute hyponatremia we treated her with hypertonic saline. She was given a 100 mL bolus of 3% saline and then nephrology was consulted. They advise 3% saline at 30 mL per hour with every 2 hour sodium levels, this was related to the hospitalist service. The patient will be admitted to the hospitalist service with a nephrology consult. Source of Hx: Old records Re-Evaluation/Progress : Time of Eval: 21:30 Re-Evaluation/Progress Note: Pt rechecked. Informed pt of need for admission. Pt understands and agrees with plan for admission. All questions addressed. Consultation #1: Referral / Consult Name: Goran Mckinney MD Consulted With: Hospitalist Call Returned at: 21:03 Staffing Administrator: Agrees with eval, Agrees with plan, Accepts admit Consultation #2: Referral / Consult Name: Miladys Ortiz MD Consulted With: Nephrology Call Returned at: 21:10 Staffing Administrator: Agrees with eval, Agrees with plan Note: Discussed pt plan of 100 ml bolus of 3% saline at 30 ml/hr. Counseled Regarding: Diagnosis, Lab results, Need for admission Patient Discharge & Departure Impression: Primary Impression: Altered mental state Altered mental status type: unspecified Qualified Code: R41.82 - Altered mental status, unspecified Additional Impression: Hyponatremia Disposition: ADMITTED TO HOSPITAL Discharge Condition All VS Reviewed: Yes Condition: Stable Referrals: Shimon Neville MD (PCP) Crit Care Except Billable Proc Time Spent: 30-74 minutes Services Performed: Patient management by me, Time spent at bedside, Reviewing test results, Reviewing imaging, Discussing patient care, Documentation in record, Time with fam/surrogate Scribe Attestation Portions of this note were transcribed by Osvaldo Rdz and Pio Guevara. I, Dr. Howard personally performed the history, physical exam and medical decision- making; I reviewed and confirmed the accuracy of the information in the transcribed note. Signed by: Osvaldo Rdz and Kristen Gerber, 12/24/16 and 2346. copies to: Shimon Neville MD, Donald L MD December 24, 2016 19:07 Osvaldo Rdz December 24, 2016 20:47 PIO GUEVARA December 24, 2016 23:32 Arya Howard MD December 24, 2016 19:07 Osvaldo Rdz December 24, 2016 20:47 PIO GUEVARA December 24, 2016 23:32
[2016-12-24 19:13] VITALS: BP 120/87; PULSE 65; RESP 20; O2SAT 100
[2016-12-24 19:24] LABS: BASOPHILS % (AUTO) 0.5 % (0-3); EOSINOPHILS % (AUTO) 2.4 % (0-5); MONOCYTES % (AUTO) 7.2 % (4-12); Mean Corpuscular Hemoglobin 28.5 pg (27.0-35.0); Mean Corpuscular Volume 81.2 fL (81-100); NEUTROPHILS % (AUTO) 66.8 % (40-74); Platelet Count 216 bil/L (150-400)
--- NOTE | 2016-12-24 19:34 | DRSVH ---
PROCEDURE: X-RAY CHEST ONE VIEW, PORTABLE ([id number]) INDICATIONS: altered mental status TECHNIQUE: One view of the chest was acquired. COMPARISON: None. FINDINGS: Surgical changes and devices: None. Lungs and pleura: No pleural effusions or pneumothorax. Lungs are clear. Mediastinum: Mediastinal contours appear normal. Heart size is normal. Bones and chest wall: No suspicious bony lesions. Overlying soft tissues appear unremarkable. IMPRESSION: No acute process. Dictated by: Lupis Brown M.D. on 12/24/2016 at 19:32 Approved by: Lupis Brown M.D. on 12/24/2016 at 19:33
--- NOTE | 2016-12-24 20:07 | DRSVH ---
PROCEDURE: CT BRAIN WITHOUT CONTRAST ([id number]) INDICATIONS: altered mental status TECHNIQUE: Noncontrast 4.5 mm thick angled axial sections acquired from the foramen magnum to the vertex, with c oronal reformats. COMPARISON: [facility], CT, CT BRAIN WO CON, 09/20/2016, 16:07. FINDINGS: Image quality: Excellent. CSF spaces: Basal cisterns are patent. No extra-axial fluid collections. The ventricles are symmet harpreet in size and shape. Brain: No intracranial bleeds or masses. There is cerebral volume loss for age, with resultant vent ricular and sulcal prominence. There are periventricular and deep white matter chronic small vessel ischemic changes. There is intracranial internal carotid artery atherosclerosis. Skull and face: Calvarium and visualized facial bones appear intact, without suspicious lesions. Sinuses: Visualized sinuses and mastoids are clear. IMPRESSION: No acute intracranial abnormality. Dictated by: Lupis Brown M.D. on 12/24/2016 at 20:05 Approved by: Lupis Brown M.D. on 12/24/2016 at 20:05
[2016-12-24] MEDS ORDERED: 3% Sodium Chloride Inj 500 ML IV ONE (20:50)
[2016-12-24 20:51] LABS: APPEARANCE,URINE CLEAR (CLEAR,HAZY); COLOR,URINE YELLOW (YELLOW); OCCULT BLOOD,URINE NEGATIVE (NEGATIVE); UROBILINOGEN,URINE NORMAL (NORMAL)
[2016-12-24] MEDS ORDERED: 3% Sodium Chloride Inj 100 ML IV ONE (21:02)
[2016-12-24 21:21] VITALS: BP 113/64; PULSE 70; RESP 16; O2SAT 96
[2016-12-24] MEDS ORDERED: Ondansetron 2 mg/mL 2 mL Inj IVPUSH PRN (21:35)
[2016-12-24] MEDS ORDERED: Polyethylene Glycol (PEG) 17 Gm Powder PO PRN (21:35)
[2016-12-24] MEDS ORDERED: Alum-Mag Hydrox-Simeth 30 mL Suspension PO PRN (21:35)
[2016-12-24 21:37] VITALS: BP 113/64; PULSE 70; RESP 16; O2SAT 96
--- NOTE | 2016-12-24 22:06 | PCM.HPMED ---
Subjective Date of Service December 24, 2016 Primary Provider: Admitting Physician: Goran Mckinney MD Primary Care Physician: Shimon Neville MD Attending Physician: Goran Mckinney MD Chief Complaint: AMS History of Present Illness: 71-year-old female with history of hypothyroidism, schizophrenia, bipolar disorder, asthma, multiple CVAs with residual left-sided weakness, type II diabetes, and hypertension who presented to the ED by EMS for decreased level of consciousness. Patient is somewhat obtunded during examination and majority of history is taken from report and sister. Per report patient had just finished eating a large dinner consisting of 4 corndogs and a mountain dew, when she became fairly unresponsive shortly after. Per report her family checked her blood sugar and noted that it was 13. Upon EMS arrival, patient is slightly more responsive and her blood sugar was 190 per their testing. Her blood pressure was noted to be around 80/40. She did complain of some mild chest pain, so they obtain an EKG which looked fairly benign per the report. Per patient's sister, the patient did take her trazodone and Seroquel after dinner. There was no noted vomiting. In the ED patient was still mildly obtunded and was only able to answer some simple questions with yes or no answers. Her temperature was noted to be 35.6, with a pulse of 65 and a respiratory rate of 20, blood pressure of 120/87. 96% on room air. Initial labs showed an unremarkable CBC CMP was remarkable for sodium of 120 and a chloride of 81 and a glucose of 181. Her creatinine was 0.63 Her urine was fairly benign except for some mild hyaline casts Upon further review of her [facility] records, patient reports she has been out of her levoxyl for the past few weeks, they only resumed taking the Levoxyl yesterday. Her PCP, Dr. Neville, obtain labs on December 23, which was pertinent for TSH of 10.28, A1c of 6.6, and a sodium of 126 with a chloride of 84. Her last noted sodium in this EMR was noted to be 140 on 11/11/2015. At the time of this examination, patient did not complain of any pain except a mild headache. She was not oriented to place or time. Review of Systems: 12 pt ROS unobtainable due to patient's mental status. Only obtainable ROS as stated in HPI Allergies Coded Allergies: Penicillins (Verified Allergy, Severe, FACIAL SWELLING, 09/03/16) aspirin (Verified Allergy, Severe, UNABLE TO BREATHE, 09/03/16) codeine (Verified Allergy, Severe, 09/03/16) fentanyl (Verified Allergy, Severe, 09/03/16) iodine (Verified Allergy, Severe, UNABLE TO BREATHE, 09/03/16) meperidine (Verified Allergy, Severe, 09/03/16) Uncoded Allergies: Demerol ASA iodine, and IVP dye. (Allergy, Unknown, 06/18/04) MEPERIDINE; FENTANYL (Ingr Allergy) (Allergy, Unknown, Y, 06/18/04) Opiate Agonists (Narcotics) (Allergy, Unknown, 06/18/04) SALICYLATES; NSAIDS; PYRAZOLES (Ingr Allergy) (Allergy, Unknown, Y, ) Home Medications From [facility] Albuterol HFA prn Carvedilol 25 mg twice a day Effexor 150 mg extended release 1 in the morning and half tab in the evening Levoxyl 137 g 1 tab daily Lipitor 40 mg daily Lisinopril 10 mg daily NovoLog sliding scale Prilosec 20 mg daily Triamcinolone cream daily Lantus 50 units daily at bedtime Advair twice a day when necessary Ketoconazole cream when necessary Seroquel 200 mg daily at bedtime Trileptal 150 mg every morning and 600 mg daily at bedtime Remeron 45 mg daily at bedtime Patient sent 5 mg daily Geodon 120 mg daily, split into and 80 mg and 40 mg tablet PMH Schizophrenia Bipolar disorder type II diabetes History of CVA with left-sided weakness explained history of vascular dementia History of hypothyroidism Hypertension Hyperlipidemia Asthma Surgical History Right wrist ganglion cyst removal Family History Extensive family history of coronary artery disease, diabetes and hypertension Social History Hx Alcohol Use: No (quit ) Hx Substance Use: No Hx Tobacco Use: No Smoking Status: Never Smoker Living Arrangement: with Family Exam Vital Signs Vital Sign - Last Date Time Temp Pulse Resp B/P Pulse Ox O2 Delivery O2 Flow Rate FiO2 12/24/16 21:37 36.2 70 16 113/64 96 Room Air 12/24/16 19:13 2 Exam General: Obese female who appears mildly obtunded, only alert and oriented to self, is cooperative to examination HEENT: NC, AT, small pupils but reactive, EOMI, oropharynx moist and pink, sclerae anicteric Neck: Soft, nontender, no JVD noted CV: Regular rate and rhythm with soft systolic murmur, peripheral pulses intact and equal Respiratory: CTA B, no wheezing or rhonchi, normal respiratory effort Abdomen: Obese, soft, nontender, nondistended, normoactive bowel sounds noted MSK: Muscle strength mildly decreased left upper and lower extremity, no swollen or tender joints, no peripheral edema or cyanosis noted Neuro: Mild slurring and slowed speech, cranial nerves II-12 grossly intact, face symmetric, DTRs 2+, patient unable to follow along with [id number] and [id number] testing, gait not tested Skin: Cool, dry, intact no rashes noted : No Luna in place Psychiatric: Obtunded, answering questions mostly in yes or no format, does not know the date, thinks the president is Nathen Campa, Does know own name and birthday, Does not know where she is other than hospital. Lab and Diagnostics Result Diagram: 12/24/16191412/24/161914 X-Rays, CTs and MRIs PROCEDURE: X-RAY CHEST ONE VIEW, PORTABLE ([id number]) IMPRESSION: No acute process. PROCEDURE: CT BRAIN WITHOUT CONTRAST ([id number]) IMPRESSION: No acute intracranial abnormality. Assessment & Plan 71-year-old female with history of hypothyroidism, schizophrenia, bipolar disorder, asthma, multiple CVAs with residual left-sided weakness, type II diabetes, and hypertension who presented to the ED by EMS for decreased level of consciousness. Acute metabolic encephalopathy, POA Patient's acute altered mental status is likely multifactorial. After reviewing her medical history, medications, and labs, patient is probably altered due to hyponatremia, but this is likely secondary to hypothyroidism, aggressive antipsychotic regimen, and likely SIADH. Prior to 2016 patient's sodium levels were regularly normal. Patient does have a history of multiple CVAs, so that will factor into the differential. Medication overdose and serotonin syndrome are also possibilities. Unlikely that patient is in myxedema crisis. Initial brain CT did not show any acute disease. No other signs or symptoms indicative of infection. We will plan to treat hyponatremia and hypothyroidism as below Placed on telemetry for CV monitoring Swallow screening Hyponatremia, POA Likely secondary to hypothyroidism, aggressive antipsychotic regimen, and likely SIADH. Nephrology was consulted by the ER, and hypertonic saline was given in the ED. We will treat hypothyroidism as below We will evaluate sodium every 2 hours while patient is on hypertonic saline. There is a likely chance that patient has SIADH, will institute fluid restriction, less than 1.5 liters per day. Hypothyroidism, POA TSH of 10 on blood draw from 12/23. Patient's sister reports resuming the medication yesterday. Home dose of Levoxyl from pending sale to [facility] is 137mcg daily. We will resume Levoxyl at current dosage assuming patient passes swallow screen Consider stress dose glucocorticoids if still lethargic Schizophrenia and bipolar disorder, POA We will resume patient's psychiatric medications when Medication Reconciliation is finished. May need titration History of CVA with residual left-sided weakness, POA Consider brain MRI in the a.m. if suspicious of new CVA PT/OT evaluation Type II diabetes, POA A1c of 6.6 yesterday. We will continue 50 units of Lantus daily at bedtime and place on high-dose correctional scale Consider titration of Lantus if hypoglycemic during the day. Essential hypertension, POA Will resume patient's home hypertensive medication when appropriate Tylenol prn fever Zofran prn nausea Bowel regimen prn constipation CODE STATUS: After discussing with sister, who is the POA, patient is to be full resuscitation Disposition: Patient is admitted under inpatient status with expected length of stay greater than 2 midnights due to risk of adverse events, decompensation, and medical complexity Pain Evaluation: Adequate Pain Control VTE Prophylaxis: Sub-Q Heparin (Unfractionated), SCDs Resuscitation Status: CPR: Attempt Resuscitation Attending Statement The patient was seen and examined together with Dr. Stokes on 12/24 and I agree with the history, exam and plan as outlined in the note above. copies to: Shimon Neville MD, Hong D DO December 24, 2016 22:06 Goran Mckinney MD December 24, 2016 23:51 Angel Luis Stokes DO December 24, 2016 22:06 Goran Mckinney MD December 24, 2016 23:51
[2016-12-24 22:11] VITALS: BP 154/85; PULSE 68; RESP 14; O2SAT 97
[2016-12-24 22:27] LABS: OSMOLALITY, URINE 496 mOs/kH2O (250-1200)
[2016-12-24] MEDS: Heparin 5,000 Unit/mL Inj SUBQ SCH (23:19)
[2016-12-24 23:22] VITALS: BP 141/82; PULSE 67; RESP 16; O2SAT 98
[2016-12-25] VITALS (8 sets, daily range): BP systolic 114–188; BP diastolic 70–105; PULSE 68–76; RESP 16–18; O2SAT 96–99
[2016-12-25] MEDS ORDERED: Glucose 40% Oral Gel 15 Gm Tube PO PRN (00:05)
[2016-12-25] MEDS ORDERED: LISI10TA PO (00:26)
[2016-12-25] MEDS ORDERED: LEVO137T2 PO (00:26)
[2016-12-25] MEDS ORDERED: NYST60PO TP (00:26)
[2016-12-25] MEDS ORDERED: CARV25TA2 PO (00:26)
[2016-12-25] MEDS ORDERED: LIP40 PO (00:26)
[2016-12-25] MEDS: Insulin LISPRO 300 Unit/3 mL Inj SUBQ SCH ×5 (00:30→22:00)
[2016-12-25] MEDS ORDERED: QUET400T35 PO (00:36)
[2016-12-25] MEDS ORDERED: ZIPR40CA24 PO (00:36)
[2016-12-25] MEDS ORDERED: VENL150C98 PO (00:36)
[2016-12-25] MEDS ORDERED: OMEP20CA11 PO (00:36)
[2016-12-25] MEDS ORDERED: TRAZ-118 PO (00:36)
[2016-12-25] MEDS ORDERED: PRAZ5CAP3 PO (00:36)
[2016-12-25] MEDS ORDERED: MELA10TA2 PO (00:36)
[2016-12-25] MEDS ORDERED: MIRT45TA5 PO (00:36)
[2016-12-25] MEDS ORDERED: ZIPR80CA22 PO (00:36)
[2016-12-25] MEDS ORDERED: OXCA300T2 PO ×2 (00:36)
[2016-12-25] MEDS ORDERED: INSU100C8 SUBQ (00:36)
[2016-12-25] MEDS ORDERED: INSU100V7 SUBQ (00:36)
[2016-12-25] MEDS ORDERED: VENL75CA95 PO (00:36)
[2016-12-25] MEDS ORDERED: KEN25CR EXT (00:36)
[2016-12-25] MEDS ORDERED: ALBU8.5H2 INHALATION (00:36)
[2016-12-25] MEDS ORDERED: FLUT1DIS5 IH (00:36)
[2016-12-25 06:02] LABS: BASOPHILS % (AUTO) 0.1 % (0-3); EOSINOPHILS % (AUTO) 1.3 % (0-5); Mean Corpuscular Hemoglobin 28.7 pg (27.0-35.0); Mean Corpuscular Volume 81.8 fL (81-100); Platelet Count 229 bil/L (150-400)
[2016-12-25] MEDS: Heparin 5,000 Unit/mL Inj SUBQ SCH ×3 (08:04→22:28)
[2016-12-25] MEDS ORDERED: OXcarbazepine 300 mg Tablet PO SCH (08:30)
[2016-12-25] MEDS ORDERED: Venlafaxine XR 75 mg ER24 Capsule PO SCH (08:30)
[2016-12-25] MEDS: Fluticasone-Salmeterol 500-50 Inhaler INHALATION SCH ×2 (10:39→21:37)
[2016-12-25] MEDS ORDERED: Albuterol 2.5 mg/3 mL Inhalation Solution NEB PRN (11:00)
--- NOTE | 2016-12-25 17:23 | PCM.PNMED ---
Subjective Date of Service December 25, 2016 Subjective 71-year-old female with history of hypothyroidism, schizophrenia, bipolar disorder, asthma, multiple CVAs with residual left-sided weakness, type II diabetes, and hypertension who presented to the ED by EMS for decreased level of consciousness. Patient or is oriented to self and to the hospital, but thinks it is 2000 and Nathen Bernal is president. Her sister who is her laundry clerk is with her, and she reports that the patient looks much better than yesterday but still not back to baseline. Exam Vital Signs Vital Sign - Last Date Time Temp Pulse Resp B/P Pulse Ox O2 Delivery O2 Flow Rate FiO2 12/25/16 16:32 37.3 75 18 159/88 97 Room Air 12/24/16 19:13 2 Intake and Output 12/24/16 12/24/16 12/25/16 Cumulative From/Thru 15:00 23:00 07:00 12/24/16 19:13 - 12/25/16 06:16 Intake Total 100 ml 0 ml 100 ml Output Total 250 ml 250 ml Balance 100 ml -250 ml -150 ml Intake Oral 0 ml 0 ml IV Total 100 ml 100 ml Output Urine Total 250 ml 250 ml # Voids 3 3 # Bowel Movements 0 0 Exam General: Obese female who appears mildly obtunded, only alert and oriented to self, is cooperative to examination HEENT: NCAT, small pupils but reactive, EOMI, oropharynx moist and pink, sclerae anicteric Neck: Soft, nontender, no JVD noted CV: Regular rate and rhythm with soft systolic murmur, peripheral pulses intact and equal Respiratory: CTA B, no wheezing or rhonchi, normal respiratory effort Abdomen: Obese, soft, nontender, nondistended, normoactive bowel sounds noted MSK: Muscle strength mildly decreased left upper and lower extremity, no swollen or tender joints, no peripheral edema or cyanosis noted Neuro: Mild slurring and slowed speech, cranial nerves II-12 grossly intact, face symmetric, DTRs 2+, patient unable to follow along with [id number] and [id number] testing, gait not tested Skin: Cool, dry, intact no rashes noted : No Luna in place Psychiatric: Obtunded, answering questions mostly in yes or no format, does not know the date, thinks the president is Nathen Campa, Does know own birthday, Does not know where she is other than hospital. IVs and Medications Medications Reviewed: Medications were reviewed in detail Lab and Diagnostics Result Diagram: 12/25/16 0213 12/25/16 1237 X-Rays, CTs and MRIs PROCEDURE: X-RAY CHEST ONE VIEW, PORTABLE ([id number]) IMPRESSION: No acute process. PROCEDURE: CT BRAIN WITHOUT CONTRAST ([id number]) IMPRESSION: No acute intracranial abnormality. Assessment & Plan 71-year-old female with history of hypothyroidism, schizophrenia, bipolar disorder, asthma, multiple CVAs with residual left-sided weakness, type II diabetes, and hypertension who presented to the ED by EMS for decreased level of consciousness. Acute metabolic encephalopathy, POA. Improving Patient's acute altered mental status is likely multifactorial. After reviewing her medical history, medications, and labs, patient is probably altered due to hyponatremia, but this is likely secondary to hypothyroidism, aggressive antipsychotic regimen, and likely SIADH. Prior to 2015 patient's sodium levels were regularly normal. Patient does have a history of multiple CVAs, so that will factor into the differential. Medication overdose and serotonin syndrome are also possibilities. Unlikely that patient is in myxedema crisis. Initial brain CT did not show any acute disease. No other signs or symptoms indicative of infection. We will plan to treat hyponatremia and hypothyroidism as below -Placed on telemetry for CV monitoring -Swallow screening indicates need for honey thick liquids Hyponatremia, present on admission. Improving Likely secondary to hypothyroidism, aggressive antipsychotic regimen, and likely SIADH. Nephrology was consulted by the ER, and hypertonic saline was given in the ED. -Sodium evaluated every 2 hours while patient was on hypertonic saline. -Dr. Moya of nephrology is following the patient closely, will see next sodium value at 6 PM and start hypertonic saline again if so indicated. -There is a likely chance that patient has SIADH, will institute fluid restriction, less than 1.5 liters per day. Hypothyroidism, present on admission. Improving TSH of 10 on blood draw from 12/23. Patient's sister reports resuming the medication yesterday. Home dose of [facility] is 137mcg daily. 3 T4 is already within normal levels Schizophrenia and bipolar disorder, POA. Stable -All psychiatric medications continued except for: -Venlafaxine held for deleterious effect on sodium level History of CVA with residual left-sided weakness, POA. Stable Consider brain MRI in the a.m. if suspicious of new CVA PT/OT evaluation Type II diabetes mellitus, POA. Stable A1c of 6.6 yesterday. We will continue 50 units of Lantus daily at bedtime and place on high-dose correctional scale Consider titration of Lantus if hypoglycemic during the day. Essential hypertension, POA. Reported stable -Elevation of blood pressure this morning to 181/97 -Home medications started again after this reading with good improvement blood pressure Tylenol prn fever Zofran prn nausea Bowel regimen prn constipation CODE STATUS: After discussing with sister, who is the POA, patient is to be full resuscitation Disposition: Patient is admitted under inpatient status with expected length of stay greater than 2 midnights due to risk of adverse events, decompensation, and medical complexity Pain Evaluation: Adequate Pain Control VTE Prophylaxis: Sub-Q Heparin (Unfractionated), SCDs Resuscitation Status: CPR: Attempt Resuscitation Attending Statement The patient was seen and examined together with Resident/House-Staff on 12/25/16 and I agree with the history, exam and plan as outlined in the note above. Rui Alexander DO December 25, 2016 17:23 Jorge Monson December 27, 2016 16:56
--- NOTE | 2016-12-25 18:54 | CONS ---
[address] [address] CONSULTATION REPORT PATIENT: DRAGAN VÁZQUEZ : 1945 MR#: [id number] ADMIT: 12/24/2016 JOB ID: [id number] DATE OF SERVICE: 12/25/2016 REQUESTING PHYSICIAN: Dr. Monson REASON FOR CONSULTATION: Management of hyponatremia. CHIEF COMPLAINT: Altered mental status. PRESENT ILLNESS: This is a 71-year-old, lady with significant past medical history of schizophrenia, bipolar disorder, multiple CVAs, with left-sided weakness, hypothyroid, hypertension, dyslipidemia, type 2 diabetes, who presented to the hospital due to altered mental status. The patient is not an ideal historian. I have obtained history from her sister and medical record. Apparently during dinner last night the patient became unresponsive. The sister reported that she was just staring into empty space. There was no evidence of convulsion. Family checked her blood sugar and was noted to be low at 13. Upon EMS arrival the blood sugar aracely to 197. The patient was more awake in the emergency department. However, her level of consciousness was not at her normal level yet. Of note, her initial sodium was 120. Patient received 3% normal saline bolus, 100 cc. This morning her sodium has improved to 126. During my visit, her daughter reported that the patient is much more awake and alert. The patient had blood work done outpatient on December 23. Her sodium level was 126. Family misunderstood. They thought they were told that patient has high sodium level. The blood work last year in May 2015, she had a normal level of sodium. Of note, urine tox screen was positive for amphetamines. Her sister stated that the she gave her NyQuil for flu symptoms. She mentioned that typically patient does not drink fluid. She had to force the patient to drink enough water. PAST MEDICAL HISTORY: Schizophrenia, bipolar disorder, type 2 diabetes, hypertension, hypothyroid, multiple CVAs with left-sided weakness, dyslipidemia, asthma. SURGICAL HISTORY: Right breast ganglion cyst removal. FAMILY HISTORY: Positive for heart disease, diabetes, hypertension. SOCIAL HISTORY: She lives with her sister who is her caregiver. She denies current use of alcohol, tobacco, or illicit drugs. ALLERGIES: 1. DEMEROL. 2. ASPIRIN. 3. IODINE. 4. MEPERIDINE. 5. FENTANYL. 6. OPIATE AGONIST. 7. PENICILLINS. 8. NSAIDS. 9. PYRAZOLES. 10. CODEINE. HOME MEDICATIONS: 1. Carvedilol. 2. Albuterol. 3. Effexor. 4. Levothyroxine. 5. Lipitor. 6. Lisinopril. 7. NovoLog. 8. Lantus. 9. Prilosec. 10. Triamcinolone cream. 11. Advair. 12. Ketoconazole cream. 13. Seroquel. 14. Trileptal. 15. Remeron. 16. Geodon. PHYSICAL EXAMINATION: Vitals: Temperature 36.7, pulse 71, respiratory 16, blood pressure 143/105. O2 sat 97% on room air. General appearance: Awake, alert, oriented x2, in no acute distress. Very cooperative. HEENT: No pallor, no jaundice. No JVD. No lymphadenopathy. No thyroid enlargement. Atraumatic. Moist mucous membranes. PERRLA. Heart: Regular rhythm. Normal S1, S2. No murmurs, rubs, or gallops. Lungs: Clear to auscultation bilaterally. No wheezing. No rhonchi. Abdomen: Soft, obese, active bowel sounds. Nontender. Nondistended. No hepatosplenomegaly. Extremities: No edema, cyanosis, or clubbing of fingers. LABORATORY: Sodium 126, potassium 4.2, chloride 87, bicarb 21, BUN 11, creatinine 0.49. Serum osmo 264. Urine osmo 496. Urine sodium 42. WBC 6.7, hemoglobin 12.1. ASSESSMENT: 1. Chronic hyponatremia, onset over 48 hours. The etiology is likely due to SIADH. The patient is taking multiple antipsychotics and antidepressant medication. Obviously those medications can induce SIADH. Interestingly, her sister reported that she recently had flu and had to take NyQuil. Her sister had to force the patient to drink a lot of water. I wonder, patient might be overly fed with free water. Her current sodium is 126. I will put the patient on a fluid restriction at 800 ml per day. Will discontinue Effexor for now and then continue the rest of her antipsychotic medications. 2. Acute metabolic encephalopathy secondary to hypoglycemia and hyponatremia. 3. Schizophrenia and bipolar disorder. 4. Multiple CVAs with left-sided weakness. 5. Hypertension. 6. Type 2 diabetes. PLAN: As mentioned earlier, will put patient on 800 cc fluid restriction. Continue the rest of her antipsychotic medications except Effexor. Will repeat her serum sodium again around noontime. If her serum sodium remains low, I would consider adding salt tab or tolvaptan. Possibly we can discuss with her psychiatrist to see if we have a better regimen for her psychiatric issue. Thank you for the consultation. We will monitor along with you. MTDD
[2016-12-25] MEDS: OXcarbazepine 300 mg Tablet PO SCH (21:37)
[2016-12-25] MEDS: Nystatin 100,000 Unit/Gm 15 Gm Powder TOPICAL SCH (21:37)
[2016-12-25] MEDS ORDERED: 3% Sodium Chloride Inj 500 ML IV SCH (21:45)
[2016-12-25] MEDS: Insulin GLARgine 100 Unit/mL Syringe SUBQ SCH (22:28)
[2016-12-26] VITALS (8 sets, daily range): BP systolic 134–166; BP diastolic 64–92; PULSE 60–99; RESP 16–20; O2SAT 94–100
[2016-12-26] MEDS: Heparin 5,000 Unit/mL Inj SUBQ SCH ×3 (05:27→22:04)
[2016-12-26] MEDS: Pantoprazole 20 mg ER24 Tablet PO SCH (08:26)
[2016-12-26] MEDS: Fluticasone-Salmeterol 500-50 Inhaler INHALATION SCH ×2 (08:29→22:08)
[2016-12-26] MEDS: Nystatin 100,000 Unit/Gm 15 Gm Powder TOPICAL SCH ×2 (08:29→22:05)
[2016-12-26] MEDS: Insulin LISPRO 300 Unit/3 mL Inj SUBQ SCH ×4 (08:31→22:00)
[2016-12-26] MEDS ORDERED: Tolvaptan 15 mag Tablet PO ONE (08:55)
--- NOTE | 2016-12-26 13:17 | PCM.PNMED ---
Subjective Date of Service December 26, 2016 Subjective Nephrology Progress Note: Attending Dr. Griffin Kurtz Ramiro is a 71-year-old, lady with a past medical history significant for schizophrenia, bipolar disorder, multiple CVAs, with left-sided weakness, hypothyroid, hypertension, dyslipidemia, type 2 diabetes, who presented to the hospital due to altered mental status and found to have iatrogenic SIADH undergoing treatment. Hospital day #3. Overnight: There were no acute events. Telemetry overnight: Sinus rhythm, heart rate 60-80, first degree AV block, without ectopy. The patient is resting in bed comfortably and in no acute distress. She reports that she is doing okay. She complains of headache and excessive thirst. She does endorse auditory hallucinations but denies visual hallucinations. She continues to have facial movements consistent with tardive dyskinesia. She denies vision changes, sore throat, shortness of breath, chest pain, abdominal pain, dysuria, diarrhea or constipation. She is voiding and eliminating without difficulty. She is up ambulating with a walker and assistance. . Exam Vital Signs Vital Sign - Last Date Time Temp Pulse Resp B/P Pulse Ox O2 Delivery O2 Flow Rate FiO2 12/26/16 11:48 36.7 60 18 158/87 100 Room Air 12/24/16 19:13 2 Intake and Output 12/25/16 12/25/16 12/26/16 Cumulative From/Thru 15:00 23:00 07:00 12/24/16 19:13 - 12/26/16 05:21 Intake Total 550 ml 64 ml 714 ml Output Total 600 ml 850 ml Balance -50 ml 64 ml -136 ml Intake Oral 550 ml 550 ml IV Total 64 ml 164 ml Output Urine Total 600 ml 850 ml # Voids 4 7 # Bowel Movements 3 3 Exam General: Middle-aged obese female lying in bed and in no acute distress, well- developed, movements consistent with tardive dyskinesia. HEENT: Normocephalic, atraumatic. External ears without defect. Pupils equal, round, and reactive to light. Anicteric sclerae, moist conjunctivae, and no lid lag. Oropharynx free of erythema and cobble stoning with moist mucosa. Neck: Supple with full range of motion. No lymphadenopathy or thyromegaly. Cardiovascular: Regular rate and rhythm with no murmurs, rubs, or gallops appreciated Pulmonary: Clear to auscultation bilaterally with no crackles, wheezes, or rhonchi. Normal respiratory effort with no use of accessory muscles. Abdomen: Soft, obese, nontender, nondistended, bowel sounds present. No hepatosplenomegaly or masses appreciated. Extremities: No clubbing, cyanosis, or edema. Skin: Normal temperature, turgor, and texture; no rash, ulcers, or subcutaneous nodules appreciated. Neurological: Residual left-sided weakness with cranial nerves grossly intact. Known gait impairment with use of a FWW. Psychiatric: Normal mood. Flat affect. Alert and oriented to person and place only. Auditory hallucinations. No visual hallucinations. . IVs and Medications Medications Reviewed: Medications were reviewed in detail Lab and Diagnostics Result Diagram: 12/25/16 02112/26/16 0445 X-Rays, CTs and MRIs X-RAY CHEST ONE VIEW, PORTABLE IMPRESSION: No acute process. Dictated by: Lupis Brown M.D. on 12/24/2016 at 19:32 CT BRAIN WITHOUT CONTRAST IMPRESSION: No acute intracranial abnormality. Dictated by: Lupis Brown M.D. on 12/24/2016 at 20:05 . Assessment & Plan Tessie Rubio is a 71-year-old, lady with a past medical history significant for schizophrenia, bipolar disorder, multiple CVAs, with left-sided weakness, hypothyroid, hypertension, dyslipidemia, type 2 diabetes, who presented to the hospital due to altered mental status and found to have iatrogenic SIADH undergoing treatment. Hospital day #3. Assessment: 1. Chronic hyponatremia likely secondary to iatrogenic SIADH. The patient is taking multiple antipsychotic and antidepressant medications which many of these can induce SIADH. The patient also recently had the flu and was taking NyQuil and her sister was forcing her to drink plenty of water which may have played a role. 2. Acute metabolic encephalopathy secondary to hypoglycemia and hyponatremia. 3. Schizophrenia and bipolar disorder with tardive dyskinesia. 4. Multiple CVAs with left-sided weakness. 5. Hypertension. 6. Type 2 diabetes. Plan: Discontinue fluid restriction. Will start Tolvaptan 15 mg 1 and monitor her sodium level closely. Repeat sodium at 1600. This medication will allow for elimination of her free water, therefore, it is important to let the patient have PO fluids. Discontinue Effexor but continue other antipsychotic medications. May want to consider discussing her schizophrenic and bipolar medication regimen with her psychiatrist to see if we can minimize the medications that decrease her sodium level. Thank you for the consultation. We will monitor along with you. VTE Prophylaxis: Sub-Q Heparin (Unfractionated), SCDs Resuscitation Status: CPR: Attempt Resuscitation Puja Caldwell DO December 26, 2016 13:17 Disposition: Patient is admitted under inpatient status with expected length of stay greater than 2 midnights due to risk of adverse events, decompensation, and medical complexity VTE Prophylaxis: Sub-Q Heparin (Unfractionated), SCDs Resuscitation Status: CPR: Attempt Resuscitation Puja Caldwell DO December 26, 2016 13:17
--- NOTE | 2016-12-26 14:47 | PCM.PNMED ---
Subjective Date of Service December 26, 2016 Subjective Denies any new issues/complaints Exam Vital Signs Vital Sign - Last Date Time Temp Pulse Resp B/P Pulse Ox O2 Delivery O2 Flow Rate FiO2 12/26/16 11:48 36.7 60 18 158/87 100 Room Air 12/24/16 19:13 2 Intake and Output 12/25/16 12/25/16 12/26/16 Cumulative From/Thru 15:00 23:00 07:00 12/24/16 19:13 - 12/26/16 05:21 Intake Total 550 ml 64 ml 714 ml Output Total 600 ml 850 ml Balance -50 ml 64 ml -136 ml Intake Oral 550 ml 550 ml IV Total 64 ml 164 ml Output Urine Total 600 ml 850 ml # Voids 4 7 # Bowel Movements 3 3 General: Alert, Cooperative, No Acute Distress Head: Normal Eyes: Scleral Anicteric Nose: Mucous Membr Moist/[place] Mouth: Mucous Membr Moist/[place] Neck: Supple Chest & Lungs: Chest Wall Normal, Clear to auscultation & percussion Cardiovascular: Regular Rate/Rhythm Abdomen: Non-tender, Non-distended, Normoactive bowel tones, Soft Extremities: No cyanosis/clubbing/edma bilat Neurological: Grossly Neurologically Intact, Normal Speech IVs and Medications Medications Reviewed: Medications were reviewed in detail Lab and Diagnostics Result Diagram: 12/25/16 0213 12/26/16 0445 X-Rays, CTs and MRIs X-RAY CHEST ONE VIEW, PORTABLE IMPRESSION: No acute process. Dictated by: Lupis Brown M.D. on 12/24/2016 at 19:32 CT BRAIN WITHOUT CONTRAST IMPRESSION: No acute intracranial abnormality. Dictated by: Lupis Brown M.D. on 12/24/2016 at 20:05 . Assessment & Plan 71-year-old female with history of hypothyroidism, schizophrenia, bipolar disorder, asthma, multiple CVAs with residual left-sided weakness, type II diabetes, and hypertension who presented to the ED by EMS for decreased level of consciousness. # Acute metabolic encephalopathy, POA. Improving - Continue with treating hyponatremia as noted below # Acute on chronic hyponatremia, present on admission. Improving - Likely secondary to iatrogenic SIADH. - On multiple antipsychotic and antidepressant medications which many of these can induce SIADH - Also recently had the flu and was taking NyQuil and her sister was forcing her to drink plenty of water which may have played a role. - Appreciate nephrology consult. Will followup with recommendations - Initially treated with fluid restriction and hypertonic saline. - Discontinue fluid restriction. - Start Tolvaptan 15 mg 1 and monitor sodium level closely ("This medication will allow for elimination of her free water, therefore, it is important to let the patient have PO fluids") # Chronic hypothyroidism, present on admission. Improving - TSH elevated (10) with normal T4 on blood draw from 12/23. - Continue with home dose Levoxyl - Close followup with PCP as outpatient # Schizophrenia and bipolar disorder, POA. Stable - Discontinue Effexor given possible contribution to hyponatremia. - Continue with other psychiatric medications - Either discuss with patient psychiatrist or consider official consult regarding possible substitute for Effexor # History of CVA with residual left-sided weakness, POA. Stable - Continue with Lipitor - Unclear why not on antiplatelet therapy. Clarify with patient's daughter in am # Type II diabetes mellitus, POA. Stable - A1c of 6.6 - Continue with Lantus - Continue with correctional scale # Essential hypertension, POA. Fairly stable - Continue with home medications Dispo: 1-2 days VTE Prophylaxis: Sub-Q Heparin (Unfractionated), SCDs Resuscitation Status: CPR: Attempt Resuscitation Jorge Monson December 26, 2016 14:47 CODE STATUS: After discussing with sister, who is the POA, patient is to be full resuscitation Disposition: Patient is admitted under inpatient status with expected length of stay greater than 2 midnights due to risk of adverse events, decompensation, and medical complexity 1. Chronic hyponatremia 2. Acute metabolic encephalopathy secondary to hypoglycemia and hyponatremia. 3. Schizophrenia and bipolar disorder with tardive dyskinesia. 4. Multiple CVAs with left-sided weakness. 5. Hypertension. 6. Type 2 diabetes. Plan: but continue other antipsychotic medications. May want to consider discussing her schizophrenic and bipolar medication regimen with her psychiatrist to see if we can minimize the medications that decrease her sodium level. Thank you for the consultation. We will monitor along with you. VTE Prophylaxis: Sub-Q Heparin (Unfractionated), SCDs Resuscitation Status: CPR: Attempt Resuscitation Jorge Monson December 26, 2016 14:47
[2016-12-26] MEDS: Insulin GLARgine 100 Unit/mL Syringe SUBQ SCH (22:04)
[2016-12-26] MEDS: OXcarbazepine 300 mg Tablet PO SCH (22:05)
[2016-12-26] MEDS ORDERED: Dextrose 5% 500 ML IV SCH (22:20)
[2016-12-27 00:03] VITALS: BP 130/83; PULSE 87; RESP 18; O2SAT 95
[2016-12-27 05:05] VITALS: BP 100/67; PULSE 75; RESP 20; O2SAT 95
[2016-12-27] MEDS: Heparin 5,000 Unit/mL Inj SUBQ SCH ×2 (05:42→12:11)
[2016-12-27] MEDS: Insulin LISPRO 300 Unit/3 mL Inj SUBQ SCH ×2 (08:00→12:00)
[2016-12-27 08:03] VITALS: BP 152/87; PULSE 76; RESP 20; O2SAT 98
[2016-12-27] MEDS: Nystatin 100,000 Unit/Gm 15 Gm Powder TOPICAL SCH (08:12)
[2016-12-27] MEDS: Fluticasone-Salmeterol 500-50 Inhaler INHALATION SCH (08:13)
[2016-12-27] MEDS: Pantoprazole 20 mg ER24 Tablet PO SCH (08:13)
[2016-12-27 09:24] VITALS: PULSE 73
--- NOTE | 2016-12-27 11:36 | PCM.PNNEPH ---
Subjective Date of Service December 27, 2016 Subjective Patient appears to be back at her baseline mental status. She denies any headache, chest pain, or shortness of breath. She is tolerating her diet. Her blood pressure has ranged from 130 and 150 today. Last 24 hours she has had 1440 N and 350 out. This morning her sodium is 139, potassium 4.4, chloride 99 , bicarbonate 26, BUN and creatinine were 10 and she will 0.56. Exam Vital Signs Vital Sign - Last Date Time Temp Pulse Resp B/P Pulse Ox O2 Delivery O2 Flow Rate FiO2 12/27/16 09:24 73 12/27/16 08:03 36.8 20 152/87 98 Room Air 12/24/16 19:13 2 Intake and Output 12/26/16 12/26/16 12/27/16 Cumulative From/Thru 15:00 23:00 07:00 12/24/16 19:13 - 12/27/16 06:55 Intake Total 326 ml 1050 ml 533 ml 2623 ml Output Total 350 ml 400 ml 1600 ml Balance -24 ml 1050 ml 133 ml 1023 ml Intake Oral 250 ml 1040 ml 513 ml 2353 ml IV Total 76 ml 10 ml 20 ml 270 ml Output Urine Total 400 ml 1250 ml Urine/Stool Mix 350 ml 350 ml # Voids 1 11 1 20 # Bowel Movements 2 5 Exam Patient is awake and alert and is able to answer simple questions. Neck is supple without adenopathy thyromegaly or jugular venous distention. Lungs were clear to auscultation. Heart was regular with mechanical soft systolic murmur. Abdomen soft without any tenderness rebound masses or hepatosplenomegaly. Extremities do not show any evidence of any clubbing, cyanosis, or edema. Skin turgor is good. Lab and Diagnostics Result Diagram: 12/25/16 0213 12/27/16 0335 X-Rays, CTs and MRIs X-RAY CHEST ONE VIEW, PORTABLE IMPRESSION: No acute process. Dictated by: Lupis Brown M.D. on 12/24/2016 at 19:32 CT BRAIN WITHOUT CONTRAST IMPRESSION: No acute intracranial abnormality. Dictated by: Lupis Brown M.D. on 12/24/2016 at 20:05 . Plan Impression Impression #1 acute hyponatremia which is resolved #2 hypertension Recommendations #1 from my point of view she can be discharged today, no nephrology follow-up is indicated at this time. Juan Ramirez DO December 27, 2016 11:36
[2016-12-27 12:01] VITALS: BP 172/84; PULSE 67; RESP 16; O2SAT 98
--- NOTE | 2016-12-27 13:49 | PCM.DIMED ---
Discharge Instructions Date of Service December 27, 2016 Dates of Hospitalization December 24, 2016 at 21:18 Discharge Diagnosis Discharge Diagnosis Hyponatremia, Acute metabolic encephalopathy, Schizophrenia, Type II Diabetes, Hypertension Medication Instructions Stop Venlafaxine. Continue all other home medications as before. Levoxyl daily is very important. Test Results Laboratory Tests Test 12/26/16 16:30 12/27/16 03:35 Sodium Level 136mEq/L (134-144) 139mEq/L (134-144) Potassium Level 4.4mEq/L (3.5-5.2) Chloride Level 99mEq/L (97-108) Carbon Dioxide Level 26mmol/L (18-29) Blood Urea Nitrogen 10mg/dL (8-27) Creatinine 0.56mg/dL (0.57-1.00) Estimat Glomerular Filtration Rate 154mL/min (>59) Glucose Level 117mg/dL (60-99) Calcium Level 10.0mg/dL (8.5-10.1) Magnesium Level 2.0mg/dL (1.6-2.6) Diet Other (Fresh fruits and vegetables, lean meat, low carbohydrates) Activity Home Health Phyical Therapy Call your provider Fever or Chills, Shortness of breath, Bleeding, Chest pain, Vomitting, Excessive diarrhea, Weakness (unilateral) (new or worsened) Patient Instructions Please take Levoxyl every day. Missing this medication may be part of why you have been in the hospital. Try to eat a balanced healthy diet with fresh fruits and vegetables, lean meat and fish, low carbohydrates, no soda especially caffeinated soda like Mountain Dew. You have an appointment with [facility] on December 29 at 11am to look at your psychiatric medications. We think Venlafaxine may have caused the hyponatremia that brought you to the hospital. DO NOT TAKE VENLAFAXINE Continue your other home medications as before. Follow-up plan Discharge with [facility]. Appointment at [facility] to assess psychiatric medications on December 29 at 11am. Follow-up Provider: Shimon Neville MD Follow-up with PCP in: 1 week Rui Alexander DO December 27, 2016 13:21
--- NOTE | 2016-12-27 20:06 | PCM.DC.MED ---
Discharge Summary Date of Service December 27, 2016 Dates of Hospitalization Date of Hospital Admission December 24, 2016 at 21:18 Date of Discharge: December 27, 2016 Providers: Admitting Physician: Goran Mckinney MD Primary Care Physician: Shimon Neville MD Attending Physician: Goran Mckinney MD Diagnosis at Time of Discharge Diagnosis at Time of Discharge Hyponatremia, Acute metabolic encephalopathy, Schizophrenia, Type II Diabetes, Hypertension Procedures XRay, CTs & MRIs X-RAY CHEST ONE VIEW, PORTABLE IMPRESSION: No acute process. Dictated by: Lupis Brown M.D. on 12/24/2016 at 19:32 CT BRAIN WITHOUT CONTRAST IMPRESSION: No acute intracranial abnormality. Dictated by: Lupis Brown M.D. on 12/24/2016 at 20:05 . ECG 12 Lead Sinus Rhythm, prolong SC Brief History 71-year-old female with history of hypothyroidism, schizophrenia, bipolar disorder, asthma, multiple CVAs with residual left-sided weakness, type II diabetes, and hypertension who presented to the ED by EMS for decreased level of consciousness. Patient is somewhat obtunded during examination and majority of history is taken from report and sister. Per report patient had just finished eating a large dinner consisting of 4 corndogs and a mountain dew, when she became fairly unresponsive shortly after. Per report her family checked her blood sugar and noted that it was 13. Upon EMS arrival, patient is slightly more responsive and her blood sugar was 190 per their testing. Her blood pressure was noted to be around 80/40. She did complain of some mild chest pain, so they obtain an EKG which looked fairly benign per the report. Per patient's sister, the patient did take her trazodone and Seroquel after dinner. There was no noted vomiting. In the ED patient was still mildly obtunded and was only able to answer some simple questions with yes or no answers. Her temperature was noted to be 35.6, with a pulse of 65 and a respiratory rate of 20, blood pressure of 120/87. 96% on room air. Initial labs showed an unremarkable CBC CMP was remarkable for sodium of 120 and a chloride of 81 and a glucose of 181. Her creatinine was 0.63 Her urine was fairly benign except for some mild hyaline casts Upon further review of her [employer] records, patient reports she has been out of her levoxyl for the past few weeks, they only resumed taking the Levoxyl yesterday. Her PCP, Dr. Neville, obtain labs on December 23, which was pertinent for TSH of 10.28, A1c of 6.6, and a sodium of 126 with a chloride of 84. Her last noted sodium in this EMR was noted to be 140 on 11/11/2015. At the time of this examination, patient did not complain of any pain except a mild headache. She was not oriented to place or time. Hospital Course 71-year-old female with history of hypothyroidism, schizophrenia, bipolar disorder, asthma, multiple CVAs with residual left-sided weakness, type II diabetes, and hypertension who presented to the ED by EMS for decreased level of consciousness. Acute metabolic encephalopathy, POA. Resolved - Continue with treating hyponatremia as noted below Acute on chronic hyponatremia, present on admission. 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 - On multiple antipsychotic and antidepressant medications which many of these can induce SIADH - Also recently had the flu and was taking NyQuil and her sister was forcing her to drink plenty of water which may have played a role. - Appreciate nephrology consult. - Per nephrology discontinue Venlafaxine as possible cause of iatrogenic SIADH - Initially treated with fluid restriction and hypertonic saline. - Discontinue fluid restriction. - Start Tolvaptan 15 mg 1 and monitor sodium level closely ("This medication will allow for elimination of her free water, therefore, it is important to let the patient have PO fluids") Chronic hypothyroidism, present on admission. Resolved - TSH elevated (10) with normal T4 on blood draw from 12/23. - Continued with home dose Levoxyl - Close followup with PCP as outpatient Schizophrenia and bipolar disorder, POA. Stable - Discontinued Effexor given possible contribution to hyponatremia. - Continued with other psychiatric medications - Close patient follow up for change in psych medications indicated History of CVA with residual left-sided weakness, POA. Stable - Continue with Lipitor Type II diabetes mellitus, POA. Stable - A1c of 6.6 - Continue with Lantus - Continue with correctional scale Essential hypertension, POA. Fairly stable - Continue with home medications PRN medications available for nausea, heartburn, constipation: Ondansetron, Maalox, Senna, Miralax Patient is admitted under inpatient status with expected length of stay greater than 2 midnights due to severity of presenting symptoms, risk of adverse event, and complexity of treatment plan. Exam Vital Signs (Last) Date Time Temp Pulse Resp B/P Pulse Ox O2 Delivery O2 Flow Rate FiO2 12/27/16 12:01 36.7 67 16 172/84 98 Room Air 12/24/16 19:13 2 Exam General: Obese female, alert and oriented nearly times three (see below), cooperative to examination HEENT: NCAT, small pupils but reactive, EOMI, oropharynx moist and pink, sclerae anicteric Neck: Soft, nontender, no JVD noted CV: Regular rate and rhythm with soft systolic murmur, peripheral pulses intact and equal Respiratory: CTA B, no wheezing or rhonchi, normal respiratory effort Abdomen: Obese, soft, nontender, nondistended, normoactive bowel sounds noted MSK: Muscle strength mildly decreased left upper and lower extremity, no swollen or tender joints, no peripheral edema or cyanosis noted Neuro: Mild slurring and slowed speech, cranial nerves II-12 grossly intact, face symmetric Skin: Cool, dry, intact no rashes noted : No Luna in place Psychiatric: More appropriate today, knows name, year is 2014, knows [facility] Test 12/24/16 19:15 12/24/16 19:21 12/24/16 19:25 12/24/16 20:22 Osmolality 264 (275-300) Uric Acid 3.3mg/dL (2.6-7.2) Total Bilirubin 0.3mg/dL (0.0-1.2) Aspartate Amino Transf (AST/SGOT) 25U/L (0-50) Alanine Aminotransferase (ALT/SGPT) 24U/L (0-32) Alkaline Phosphatase 73U/L (25-165) Total Protein 7.2g/dL (6.4-8.4) Albumin 4.1g/dL (3.4-5.0) Thyroid Stimulating Hormone (TSH) 14.060uIU/mL (0.450-4.500) Free Thyroxine 1.13ng/dL (0.82-1.77) Hold Blue Top Tube Received (Received) Hold Garcia Top Tube Received (Received) Urine Color Yellow (YELLOW) Urine Appearance Clear (CLEAR,HAZY) Urine pH 5.0 (5.0-8.0) Urine Specific Hawks 1.025 (1.003-1.035) Urine Protein Negativemg/dL (NEG,TRACE) Urine Glucose (UA) Negativemg/dL (NEGATIVE) Urine Ketones Negativemg/dL (NEGATIVE) Urine Occult Blood Negative (NEGATIVE) Urine Nitrite Negative (NEGATIVE) Urine Bilirubin Negative (NEGATIVE) Urine Urobilinogen Normalmg/dL (NORMAL) Urine Leukocyte Esterase Negative (NEGATIVE) Urine RBC 0-2/hpf (0-2) Urine WBC 0-5/hpf (0-5) Urine Epithelial Cells Moderate/hpf (NONE-MOD) Urine Crystals None seen (NONE SEEN) Urine Bacteria None/hpf (NONE-FEW) Urine Hyaline Casts 5/20/lpf (NONE) Urine Granular Casts None seen (NONE SEEN) Urine Waxy Casts None seen (NONE SEEN) Urine Red Blood Cell Casts None seen (NONE SEEN) Urine White Blood Cell Casts None seen (NONE SEEN) Urine Mucus None seen (None Seen) Urine Trichomonas None seen (NONE SEEN) Urine Yeast None (NONE SEEN) Urinalysis Comment None Urine Culture Reflexed Not indicated Urine Osmolality 496mOs/kH2O (250-1200) Urine Random Sodium 42mEq/L Urine Opiates Screen Negative Urine Methadone Screen Negative Urine Barbiturates Screen Negative Urine Amphetamines Screen Positive Urine Benzodiazepines Screen Negative Urine Cocaine Metabolite Screen Negative Urine Cannabinoids Screen Negative Test 12/25/16 02:13 12/27/16 03:35 White Blood Count 6.7th/mm3 (3.8-10.1) Red Blood Count 4.22mil/mm3 (3.90-5.20) Hemoglobin 12.1g/dL (12.0-15.6) Hematocrit 34.5% (35.0-46.0) Mean Corpuscular Volume 81.8fL (81-100) Mean Corpuscular Hemoglobin 28.7pg (27.0-35.0) Mean Corpuscular Hemoglobin Concent 35.1% (32.0-37.0) Red Cell Distribution Width 13.3% (12.3-15.4) Platelet Count 229bil/L (150-400) Neutrophils (%) (Auto) 73.0% (40-74) Lymphocytes (%) (Auto) 19.5% (14-46) Monocytes (%) (Auto) 6.0% (4-12) Eosinophils (%) (Auto) 1.3% (0-5) Basophils (%) (Auto) 0.1% (0-3) Sodium Level 139mEq/L (134-144) Potassium Level 4.4mEq/L (3.5-5.2) Chloride Level 99mEq/L (97-108) Carbon Dioxide Level 26mmol/L (18-29) Blood Urea Nitrogen 10mg/dL (8-27) Creatinine 0.56mg/dL (0.57-1.00) Estimat Glomerular Filtration Rate 154mL/min (>59) Glucose Level 117mg/dL (60-99) Calcium Level 10.0mg/dL (8.5-10.1) Magnesium Level 2.0mg/dL (1.6-2.6) Discharge Medications Discharge Medications Atorvastatin (Lipitor) 40 Mg Tablet 40 MG PO HS (Reported) Carvedilol (Carvedilol) 25 Mg Tablet 25 MG PO BID (Reported) Fluticasone/Salmeterol (Advair 500-50 Diskus) 1 Each Disk.w.dev 1 PUFF IH BID ( Reported) Insulin Aspart (NovoLOG U100 Insulin Vial) 100 U/Ml U 10 UNITS SUBQ TIDWM ( Reported) Insulin Glargine (Lantus U100 Insulin Vial) 100 Unit/Ml Vial 50 UNIT SUBQ HS ( Reported) Levothyroxine (Levothyroxine) 137 Mcg Tablet 137 MCG PO QAM (Reported) Lisinopril (Lisinopril) 10 Mg Tablet 10 MG PO DAILY (Reported) Melatonin (Melatonin) 10 Mg Tablet 10 MG PO HS (Reported) Mirtazapine (Mirtazapine) 45 Mg Tablet 45 MG PO HS (Reported) Nystatin (Nystop) 60 Gm Powder 1 APPLIC TP BID (Reported) Omeprazole (Omeprazole) 20 Mg Capsule.dr 20 MG PO QAM (Reported) Oxcarbazepine (Oxcarbazepine) 300 Mg Tablet 150 MG PO QAM (Reported) OXCARBAMAZEPINE 150 MG IN AM, OXCARBAMAZEPINE 600 MG AT HS Oxcarbazepine (Oxcarbazepine) 300 Mg Tablet 600 MG PO HS (Reported) OXCARBAMAZEPINE 150 MG IN AM, OXCARBAMAZEPINE 600 MG AT HS Prazosin (Prazosin) 5 Mg Capsule 5 MG PO HS (Reported) Quetiapine Fumarate (Quetiapine Fumarate) 400 Mg Tablet 200 MG PO HS (Reported) Trazodone (Trazodone) 100 Mg Tablet 150-200 MG PO HS (Reported) Triamcinolone Acet (Triamcinolone Acetonide Cream) 1 Applic/0.25 Gm Cr 1 APPLIC EXT BID (Reported) Ziprasidone (Ziprasidone) 40 Mg Capsule 40 MG PO QAM (Reported) ZIPRASIDONE 40 MG IN AM, AND ZIPRASIDONE 80 MG IN PM Ziprasidone (Ziprasidone) 80 Mg Capsule 80 MG PO QPM (Reported) ZIPRASIDONE 40 MG IN AM, AND ZIPRASIDONE 80 MG IN PM As needed Albuterol HFA (Proair HFA) 8.5 Gm Hfa.aer.ad 2 PUFFS INHALATION Q4H PRN PRN For Shortness of Breath (Reported) Additional med instructions Stop Venlafaxine. Continue all other home medications as before. Levoxyl daily is very important. Followup Plan Disposition: Home with home health. Follow-up plan Discharge with [facility]. Appointment at [facility] to assess psychiatric medications on December 29 at 11am. Discharge Diet: Diabetic, Other (Fresh fruits and vegetables, lean meat, low carbohydrates) Discharge Activity: Home Health Phyical Therapy Patient Instructions Please take Levoxyl every day. Missing this medication may be part of why you have been in the hospital. Try to eat a balanced healthy diet with fresh fruits and vegetables, lean meat and fish, low carbohydrates, no soda especially caffeinated soda like Mountain Dew. You have an appointment with [facility] on December 29 at 11am to look at your psychiatric medications. We think Venlafaxine may have caused the hyponatremia that brought you to the hospital. DO NOT TAKE VENLAFAXINE Continue your other home medications as before. Follow-up Provider: Shimon Neville MD Follow-up with PCP in: 1 week Time spent 35 min Attending Statement The patient was seen and examined together with Resident/House-staff on 12/27/16 and I agree with the history, exam and plan as outlined in the note above. copies to: Shimon Neville MD, Alan C DO December 27, 2016 20:06 Jorge Monson December 31, 2016 16:38
== END 2016-12-27 15:00 | disposition home or self-care (01) | DRG 71 ==
LOC: SED 19:02 → PCC 21:18
PROVIDERS: ADMIT Hospitalist; ATTEND Hospitalist
DX: G93.41 Metabolic encephalopathy (principal); I69.354 Hemiplegia and hemiparesis following cerebral infarction affecting left non-dominant side; E22.2 Syndrome of inappropriate secretion of antidiuretic hormone; Z79.4 Long term (current) use of insulin; Z91.5 Personal history of self-harm; E03.9 Hypothyroidism, unspecified; F20.9 Schizophrenia, unspecified; F31.9 Bipolar disorder, unspecified; I10 Essential (primary) hypertension; E11.649 Type 2 diabetes mellitus with hypoglycemia without coma

== ENCOUNTER 2017-01-28 11:00 | Emergency (ER) | payer MEDICARE, MEDICAID ==
[~2017-01-28] VITALS: Ht 154.9 cm; Wt 99.5 kg
[~2017-01-28 11:00] MED LIST changes: +ALBU8.5H2 INHALATION; -CARV25T PO; +CARV25TA2 PO; -CEPH500C PO; +FLUT1DIS5 IH; -FLUT1DIS7; +INSU100C8 SUBQ; -INSU100V4; +INSU100V7 SUBQ; +KEN25CR EXT; +LEVO137T2 PO; -LEVO50TA83; -LIDO30AD TP; -LIP40; +LIP40 PO; +LISI10TA PO; +MELA10TA2 PO; -MIRT45TA; +MIRT45TA5 PO; +NYST60PO TP; +OMEP20CA11 PO; +OXCA300T2 PO; -PRAZ5CAP; +PRAZ5CAP3 PO; -QUET400T; +QUET400T35 PO; -QUET50TA; +TRAZ-118 PO; -TRAZ-151; -VENL150C4; -VENL75CA3; -ZIPR40CA; +ZIPR40CA24 PO; +ZIPR80CA22 PO; -[UNRECOGNIZED DRUG - CODE]; -[UNRECOGNIZED DRUG - CODE]
[2017-01-28 11:04] VITALS: BP 218/97; PULSE 67; RESP 17; O2SAT 100
--- NOTE | 2017-01-28 11:14 | ED.REPORT ---
HPI-General Illness Date of Service Jan 28, 2017 ED Provider: Xavier Thakkar DO 71 y/o female with a hx of CVA (x4, last being 12 years ago), dementia, HTN, COPD and DM presents to the ED with her sister/cnc operator programmer complaining of transient chest pain yesterday and again at triage today. Associated sx include constant left arm pain since yesterday, headache for the last 3 days and high blood pressure. Her BP at home was 167/116 yesterday. She was sent to the ED by Dr. Neville. The pt denies chest pain on palpation and current headache. Nursing Notes Stated Complaint: POSS HEART ATTACK Chief Complaint: Chest Pain Nursing Notes Reviewed: Yes Allergies: Coded Allergies: Penicillins (Verified Allergy, Severe, FACIAL SWELLING, 01/28/17) aspirin (Verified Allergy, Severe, UNABLE TO BREATHE, 01/28/17) codeine (Verified Allergy, Severe, 01/28/17) fentanyl (Verified Allergy, Severe, 01/28/17) iodine (Verified Allergy, Severe, UNABLE TO BREATHE, 01/28/17) meperidine (Verified Allergy, Severe, 01/28/17) Uncoded Allergies: Demerol ASA iodine, and IVP dye. (Allergy, Unknown, 06/18/04) MEPERIDINE; FENTANYL (Ingr Allergy) (Allergy, Unknown, Y, 06/18/04) Opiate Agonists (Narcotics) (Allergy, Unknown, 06/18/04) SALICYLATES; NSAIDS; PYRAZOLES (Ingr Allergy) (Allergy, Unknown, Y, ) Scheduled Atorvastatin (Lipitor) 40 Mg Tablet 40 MG PO HS Carvedilol (Carvedilol) 25 Mg Tablet 25 MG PO BID Fluticasone/Salmeterol (Advair 500-50 Diskus) 1 Each Disk.w.dev 1 PUFF IH BID Insulin Aspart (NovoLOG U100 Insulin Vial) 100 U/Ml U 10 UNITS SUBQ TIDWM Insulin Glargine (Lantus U100 Insulin Vial) 100 Unit/Ml Vial 50 UNIT SUBQ HS Levothyroxine (Levothyroxine) 137 Mcg Tablet 137 MCG PO QAM Melatonin (Melatonin) 10 Mg Tablet 10 MG PO HS Mirtazapine (Mirtazapine) 45 Mg Tablet 45 MG PO HS Nystatin (Nystop) 60 Gm Powder 1 APPLIC TP BID Omeprazole (Omeprazole) 20 Mg Capsule.dr 20 MG PO QAM Oxcarbazepine (Oxcarbazepine) 300 Mg Tablet 150 MG PO QAM OXCARBAMAZEPINE 150 MG IN AM, OXCARBAMAZEPINE 600 MG AT HS Oxcarbazepine (Oxcarbazepine) 300 Mg Tablet 600 MG PO HS OXCARBAMAZEPINE 150 MG IN AM, OXCARBAMAZEPINE 600 MG AT HS Prazosin (Prazosin) 5 Mg Capsule 5 MG PO HS Quetiapine Fumarate (Quetiapine Fumarate) 400 Mg Tablet 200 MG PO HS Trazodone (Trazodone) 100 Mg Tablet 150-200 MG PO HS Triamcinolone Acet (Triamcinolone Acetonide Cream) 1 Applic/0.25 Gm Cr 1 APPLIC EXT BID Ziprasidone (Ziprasidone) 40 Mg Capsule 40 MG PO QAM ZIPRASIDONE 40 MG IN AM, AND ZIPRASIDONE 80 MG IN PM Ziprasidone (Ziprasidone) 80 Mg Capsule 80 MG PO QPM ZIPRASIDONE 40 MG IN AM, AND ZIPRASIDONE 80 MG IN PM Scheduled PRN Albuterol HFA (Proair HFA) 8.5 Gm Hfa.aer.ad 2 PUFFS INHALATION Q4H PRN PRN For Shortness of Breath General Time Seen by MD: 11:12 Chief Complaint Chest pain Hx Obtained From: Other family... (sister) Arrived By: Walk-in Sudden in Onset?: Yes Onset Occurred: Yesterday Symptom Duration: Intermittent Location: : Chest Quality: Painful Radiation: : Arm left Severity: Current: Moderate Severity: Maximum: Severe Recent Healthcare: Recent doctor visit Similar Sx Previous: No Past Medical History Past Medical History Notes: PCP: Dr. Recinos Past Medical History Bipolar disorder schizophrenia Left sided weakness secondary to prior CVA Strokes x4 Early onset dementia Suicidal ideation Hypertension Insulin dependent diabetes COPD Asthma Hx pneumonia Anxiety Depression Recurrent suicidal ideation Hx self harm Past Surgical History R hand Back Tubal ligation Smoking History Never Smoker Social History Alcohol Use: Denies alcohol use Drug Use: Denies drug use Ambulatory Status Walker Review of Systems Reports: high blood pressure Denies: chest pain on palpation Full Review of Systems Cardiovascular: Reports: Chest pain (transient) Musculoskeletal: Reports: Extremity pain (left arm) Neurologic: Reports: Headache (now resolved) Complete sys rev & neg: except as marked. Physical Exam Vital Signs Vital Signs Date Time Temp Pulse Resp B/P Pulse Ox O2 Delivery O2 Flow Rate FiO2 01/28/17 14:31 62 182/84 01/28/17 11:04 36.7 67 17 218/97 100 Room Air Initial VS: Reviewed Neck: Full range of motion Abdomen / GI: Soft, Non-tender Extremities: Vascular intact, Neuro intact, No swelling, No tenderness Skin: Warm, Dry, No cyanosis General/Constitutional: Awake, Alert, No acute distress Head / Eyes: Atraumatic, Normocephalic, PERRL, EOMI Respiratory / Chest: Atraumatic, Breath sounds NL, Breath sounds = bilat, No respiratory distress, No rales, No rhonchi, No wheezing Cardiovascular: Heart rate NL, Regular rhythm, Heart sounds NL, No gallop, No murmurs, No rubs Neurologic: Oriented X3, No motor deficits, CN II - XII intact Mild dystonia Lip smacking Numbness on the left side in face, arm and leg. Occasional muscle spasms Psychiatric: Not suicidal, Not homicidal Inappropriate responses. When asked how she's feeling, she says "with my hands" Odd affect. Interpretation & Diagnostics Lab Results Interpretation Result Diagram: 01/28/17 1130 01/28/17 1130 Test 01/28/17 11:30 01/28/17 12:15 White Blood Count 6.6th/mm3 (3.8-10.1) Red Blood Count 4.69mil/mm3 (3.90-5.20) Hemoglobin 13.2g/dL (12.0-15.6) Hematocrit 39.3% (35.0-46.0) Mean Corpuscular Volume 83.8fL (81-100) Mean Corpuscular Hemoglobin 28.1pg (27.0-35.0) Mean Corpuscular Hemoglobin Concent 33.6% (32.0-37.0) Red Cell Distribution Width 13.8% (12.3-15.4) Platelet Count 212bil/L (150-400) Neutrophils (%) (Auto) 63.8% (40-74) Lymphocytes (%) (Auto) 27.9% (14-46) Monocytes (%) (Auto) 5.5% (4-12) Eosinophils (%) (Auto) 2.3% (0-5) Basophils (%) (Auto) 0.3% (0-3) Sodium Level 132mEq/L (134-144) Potassium Level 4.7mEq/L (3.5-5.2) Chloride Level 93mEq/L (97-108) Carbon Dioxide Level 25mmol/L (18-29) Blood Urea Nitrogen 12mg/dL (8-27) Creatinine 0.50mg/dL (0.57-1.00) Estimat Glomerular Filtration Rate 175mL/min (>59) Glucose Level 145mg/dL (60-99) Calcium Level 9.9mg/dL (8.5-10.1) Magnesium Level 1.8mg/dL (1.6-2.6) Total Bilirubin 0.3mg/dL (0.0-1.2) Aspartate Amino Transf (AST/SGOT) 22U/L (0-50) Alanine Aminotransferase (ALT/SGPT) 21U/L (0-32) Alkaline Phosphatase 82U/L (25-165) Troponin T < 0.010ug/L (0.0-0.011) Pro-B-Type Natriuretic Peptide 339.5pg/mL (0-301) Total Protein 7.7g/dL (6.4-8.4) Albumin 4.2g/dL (3.4-5.0) Hold Garcia Top Tube Received (Received) Prothrombin Time 11.0sec (8.1-12.5) Prothromb Time International Ratio 1.03ratio ECG Interpretation ECG Interpretation: Normal sinus rhtyhm. Rate 65. Borderline prolonged NC interval. No change compared to prior ECG on 12/24/16 Time: 11:13 Interpreted by: ED physician X-Ray Chest Interpretation Chest Xray Interpretation: IMPRESSION: Negative chest. No acute cardiopulmonary process is evident. Dictated by: Jeovanny Cole M.D. on 01/28/2017 at 10:37 Approved by: Jeovanny Cole M.D. on 01/28/2017 at 10:50 View: Portable, 1 view Interpretation / Wet Read by: Interpret - Radiologist CT Head Interpretation IMPRESSION: Mild microvascular atherosclerotic change in the deep white matter of each hemisphere, no acute disease. Dictated by: Sascha Trejo M.D. on 01/28/2017 at 11:59 Approved by: Sascha Trejo M.D. on 01/28/2017 at 11:59 Study: Head CT no contrast Interpretation / Wet Read by: Interpret - Radiologist Re-Eval/Medical Decision Med Decision/Clinical Course Patient presents with hypertension and sort of vague reports of headache and chest pain, patient does not appear to be any distress she is hypertensive. Her exam is somewhat obscured by her developmental delay. Her head CT is reassuring, I did discuss with the patient and her sister the limitations of a head CT in excluding subarachnoid hemorrhage completely and did a lumbar puncture which they declined as the patient is feeling better. Concomitant with this I also treated her blood pressure and treated her with a standard headache cocktail of Benadryl and Compazine which seemed to dramatically improve her symptoms. I do not think this is a stroke, there is no acute neurologic deficits. It seems unlikely to be a subarachnoid hemorrhage. Patient has underlying hypertension and after bringing her blood pressure down she is feeling better. Recommended restarting lisinopril. Return and follow-up precautions given. Source of Hx: Old records Time of Eval: 12:12 Patient Status: Condition improved Re-Evaluation/Progress Note: Rechecked pt. She reports feeling better. Time of Eval: 13:29 Patient Status: Condition improved Re-Evaluation/Progress Note: Rechecked pt. Her headache has improved Discussed lab results, imaging results, diagnosis and plan to discharge. Declined a spinal tap. Pt and her sister understands and agrees with the plan. F/U instructions and RTER warning given. All questions addressed Counseled Regarding: Diagnosis, Lab results, Need for follow-up, When/why to return to ED Discharge & Departure Primary Impression: Hypertension Disposition: Home Discharge Condition All VS Reviewed: Yes Condition: Stable Additional Instructions: There is no evidence of a heart attack, or stroke or intracranial hemorrhage. Use Tylenol as needed for headache, resume your lisinopril. Return to the ER if you develop a severe unrelenting headache, or other concerns for heart attack or stroke. Follow up with your regular doctor in the next few days. Referrals: Shimon Neville MD (PCP) Scribe Attestation Portions of this note were transcribed by Ej Eason. I, , personally performed the history, physical exam and medical decision-making;I reviewed and confirmed the accuracy of the information in the transcribed note. Signed by Brain Rogers. 01/28/17 13:57 copies to: Shimon Neville MD, Timothy S DO Jan 28, 2017 11:14 Ej Eason Jan 28, 2017 11:26
[2017-01-28] MEDS ORDERED: Nitroglycerin 2% 1 Gm Ointment TOPICAL ONE (11:20)
[2017-01-28 11:52] LABS: BASOPHILS % (AUTO) 0.3 % (0-3); EOSINOPHILS % (AUTO) 2.3 % (0-5); MONOCYTES % (AUTO) 5.5 % (4-12); Mean Corpuscular Hemoglobin 28.1 pg (27.0-35.0); Mean Corpuscular Volume 83.8 fL (81-100); NEUTROPHILS % (AUTO) 63.8 % (40-74); Platelet Count 212 bil/L (150-400)
--- NOTE | 2017-01-28 11:52 | DRSVH ---
PROCEDURE: X-RAY CHEST ONE VIEW, PORTABLE ([id number]) INDICATIONS: CHEST PAIN TECHNIQUE: One view of the chest was acquired. COMPARISON: [facility], CR, XR CHEST 1VW (PORTABLE), 09/03/2016, 19:25. FINDINGS: Surgical changes and devices: None. Lungs and pleura: No pleural effusions or pneumothorax. Lungs are clear. Mediastinum: Mediastinal contours appear normal. Heart size is normal. Bones and chest wall: No suspicious bony lesions. Overlying soft tissues appear unremarkable. IMPRESSION: Negative chest. No acute cardiopulmonary process is evident. Dictated by: Jeovanny Cole M.D. on 01/28/2017 at 10:37 Approved by: Jeovanny Cole M.D. on 01/28/2017 at 10:50
--- NOTE | 2017-01-28 12:01 | DRSVH ---
PROCEDURE: CT BRAIN WITHOUT CONTRAST ([id number]) INDICATIONS: headache hypertension TECHNIQUE: Noncontrast 4.5 mm thick angled axial sections acquired from the foramen magnum to the vertex, with c oronal reformats. COMPARISON: [facility], CT, CT BRAIN WO CON, 12/24/2016, 19:35. [facility], CT, CT BRAIN WO CON, 09/20/2016, 16:07. FINDINGS: Image quality: Excellent. CSF spaces: Basal cisterns are patent. No extra-axial fluid collections. The ventricles are symmet harpreet in size and shape. Brain: No intracranial bleeds or masses. There is cerebral volume loss for age, with resultant vent ricular and sulcal prominence. There are periventricular and deep white matter chronic small vessel ischemic changes. There is intracranial internal carotid artery atherosclerosis. Skull and face: Calvarium and visualized facial bones appear intact, without suspicious lesions. Sinuses: Visualized sinuses and mastoids are clear. 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 Dictated by: Sascha Trejo M.D. on 01/28/2017 at 11:59 Approved by: Sascha Trejo M.D. on 01/28/2017 at 11:59
[2017-01-28 12:23] LABS: TROPONIN T < 0.010 ug/L (0.0-0.011)
[2017-01-28] MEDS ORDERED: ProchlorPERazine 5 mg/mL 2 mL Inj IVPUSH ONE (12:25)
[2017-01-28 12:31] LABS: Magnesium 1.8 mg/dL (1.6-2.6)
[2017-01-28 12:44] LABS: INR 1.03 ratio
[2017-01-28 14:31] VITALS: BP 182/84; PULSE 62
== END 2017-01-28 14:32 | disposition home or self-care (01) ==
LOC: SED 11:00
DX: I10 Essential (primary) hypertension (principal); M79.602 Pain in left arm; J44.9 Chronic obstructive pulmonary disease, unspecified; E11.9 Type 2 diabetes mellitus without complications; F03.90 Unspecified dementia, unspecified severity, without behavioral disturbance, psychotic disturbance, mood disturbance, and anxiety; Z86.73 Personal history of transient ischemic attack (TIA), and cerebral infarction without residual deficits; Z79.4 Long term (current) use of insulin; Z79.51 Long term (current) use of inhaled steroids; Z88.0 Allergy status to penicillin; Z88.5 Allergy status to narcotic agent; Z88.6 Allergy status to analgesic agent; Z88.8 Allergy status to other drugs, medicaments and biological substances
CPT/HCPCS: 36415; 70450; 71010; 80053; 83735; 83880; 84484; 85025; 85610; 93005; 96374; 96375; 99285; J0780; J1200